=== PATIENT | female | born 1945 | race Caucasian/White ===

== ENCOUNTER → 2017-05-25 | Outpatient (CLI) | payer MEDICARE ==
[~2017-05-25] MED LIST: ALPR0.5T3 PO; BACT800T5 PO; BISO10TA5 PO; NIFE60TA58 PO; SACC1CAP3 PO
[2017-05-25 15:02] LABS: HEMATOCRIT 37.7 % (35.0-46.0); HEMOGLOBIN 12.8 GM/DL (11.6-15.3); MEAN CELL VOLUME 87.8 FL (80.0-100.0); MEAN CORPUSCULAR HEMOGLOBIN 29.9 PG (27.0-34.0); MEAN CORPUSCULAR HGB CONC 34.1 % (32.0-36.0); PLATELET COUNT 536 TH/MM3 (150-450); RED BLOOD COUNT 4.29 MIL/MM3 (4.00-5.30); RED CELL DISTRIBUTION WIDTH 12.9 % (11.6-17.2); WHITE BLOOD COUNT 15.6 TH/MM3 (4.0-11.0)
[2017-05-25 15:21] LABS: BICARBONATE 26.4 MEQ/L (21.0-32.0); CALCIUM 8.8 MG/DL (8.5-10.1); CREATININE 0.73 MG/DL (0.50-1.00)
[2017-05-25 15:41] LABS: INTERNATIONAL NORMALIZED RATIO 1.1 RATIO; PROTHROMBIN TIME - PATIENT 11.1 SEC (9.8-11.6)
[2017-05-25 16:08] LABS: BILIRUBIN, URINE NEG (NEG); BLOOD, URINE TRACE (NEG); GLUCOSE,URINE NEG (NEG); HYALINE CAST, URINE 2 /lpf (RARE); KETONE, URINE NEG (NEG); MUCUS URINE FEW /lpf (OCC); NITRITE,URINE NEG (NEG); PH, URINE 6.5 (5.0-8.5); SQUAMOUS EPITHELIAL CELL URINE 2 /hpf (0-5); URINE COLOR YELLOW (YELLW/STRAW); URINE LEUKOCYTE ESTERASE LARGE (NEG); WHITE BLOOD CELL CLUMPS MOD
== END ==
LOC: CPRE 14:20
PROVIDERS: ATTEND Surgery
DX: Z01.812 Encounter for preprocedural laboratory examination (principal); I73.9 Peripheral vascular disease, unspecified; I10 Essential (primary) hypertension
CPT/HCPCS: 36415; 80048; 81001; 85027; 85610; 87086

== ENCOUNTER 2017-06-01 06:14 | Inpatient (IN) | payer MEDICARE ==
[~2017-06-01] VITALS: Ht 157.5 cm; Wt 56.0 kg
[~2017-06-01 06:14] MED LIST changes: -SACC1CAP3 PO
[2017-06-01] MEDS ORDERED: BUPIVACAINE HCL PF 0.5% 30 ML VIAL ONE (06:43)
[2017-06-01] MEDS ORDERED: PROTAMINE SULFATE 50 MG/5 ML VIAL ONE (06:43)
[2017-06-01] MEDS ORDERED: HEPARIN SODIUM - IV 10,000 UNITS/10 ML VIAL ONE ×2 (06:43→10:59)
[2017-06-01] MEDS ORDERED: THROMBIN (TOPICAL) 20,000 UNIT SPRAY KIT ONE (06:44)
[2017-06-01] MEDS ORDERED: ceFAZolin 2 GM PREMIX 50 ML ONE (06:44)
[2017-06-01] MEDS ORDERED: ceFAZolin INJ 1,000 MG VIAL ONE (06:44)
[2017-06-01] MEDS ORDERED: HEPARIN-NS/PF INJ 500 ML ONE (06:44)
[2017-06-01] MEDS ORDERED: CHLORHEXIDINE GLUCONATE 2 % 1 PACK (2 CLOTHS) TOPICAL PRN (06:45)
[2017-06-01] MEDS ORDERED: LACTATED RINGER'S 1000 ML IV PRN (06:45)
[2017-06-01] MEDS ORDERED: SODIUM CHLORID 0.9% 500 ML IV PRN (06:45)
[2017-06-01] MEDS ORDERED: POVIDONE IODINE 5% (ANTISEPSIS KIT) 4 APPLICATIONS EACH NARE PRN (06:45)
[2017-06-01] MEDS ORDERED: METOPROLOL TARTRATE 25 MG TAB PO PRN (06:45)
[2017-06-01] MEDS ORDERED: SACC1CAP3 PO (06:58)
[2017-06-01] MEDS ORDERED: FAMOTIDINE 20 MG/2 ML VIAL ONE (07:16)
--- NOTE | 2017-06-01 07:21 | PD.VS.PN ---
Pre-operative Note Pre-operative diagnosis: PAD, R LE tissue loss, infrarenal aortic occlusion Planned procedure: ax-fem, fem-fem Interval History: Pt has been feeling well except for continued R leg pain. No F/C or other change in health that would preclude OR. Labs: Hct 38 cr 0.7 INR 1.1 plt 536 Blood: T&S Imaging: CT ([facility]) reviewed Orders: NPO Ancef 2g IV OCTOR Post-operative destination: CVICU Operative site marked: Yes Consent: Informed consent has been obtained from Genoveva Shah. I have explained the procedure in detail and discussed the risks, benefits, and potential complications. All questions have been answered. Patient contact information: Jens [phone] Angelo Barreto MD Jun 01, 2017 07:21
[2017-06-01] MEDS ORDERED: RESP: ALBUTEROL 2.5 MG/IPRATROPIUM 0.5 MG NEB (PRN) ONE (07:29)
[2017-06-01] MEDS ORDERED: RESP: ALBUTEROL 2.5 MG/IPRATROPIUM 0.5 MG NEB (SCH) NEB ONE ×2 (08:00→13:00)
[2017-06-01] MEDS ORDERED: FAMOTIDINE 20 MG/2 ML VIAL IV PUSH ONE (08:00)
[2017-06-01] MEDS ORDERED: ACETAMINOPHEN 1000 MG/100 ML 100 ML IV ONE (11:42)
[2017-06-01] MEDS ORDERED: LIDOCAINE HCL 1% PF 5 ML SYRINGE OTHER ONE (12:00)
[2017-06-01] MEDS ORDERED: NORMOSOL R INJ 2,000 ML IV ONE (12:00)
[2017-06-01] MEDS ORDERED: SODIUM CHLOR 0.9% 250 ML INJ 250 ML IV ONE (12:00)
[2017-06-01] MEDS ORDERED: PHENYLEPH/NS 1000 MCG/10 ML SYR IV ONE (12:00)
[2017-06-01] MEDS ORDERED: PHENYLEPHRINE HCL 10 MG/ML VIAL IV ONE (12:00)
[2017-06-01] MEDS ORDERED: DEXAMETHASONE SOD PHOS 4 MG/ML VIAL IV ONE (12:00)
[2017-06-01] MEDS ORDERED: SODIUM CHLORID 0.9% 500 ML INJ 500 ML IV ONE (12:00)
[2017-06-01] MEDS ORDERED: PROPOFOL 200 MG/20 ML AMP IV ONE (12:00)
[2017-06-01] MEDS ORDERED: ROCURONIUM INJ 50 MG/5 ML SYRINGE IV PUSH ONE (12:00)
[2017-06-01] MEDS ORDERED: ePHEDrine/NS 25 MG/5 ML SYRINGE IV ONE (12:00)
[2017-06-01] MEDS ORDERED: ONDANSETRON HCL 4 MG/2 ML VIAL IV ONE (12:00)
--- NOTE | 2017-06-01 12:11 | HHI.PR ---
cc: Angelo Barreto MD; Noemi Blake MD Immediate Post Op Note Procedure Date: Jun 01, 2017 Pre Op Diagnosis: Aortic occlusion, PAD, R LE wounds Post Op Diagnosis: Aortic occlusion, PAD, R LE wounds Surgeon: Angelo Barreto Filter Tender(s): Bonifacio Loja Procedure: 1. R ax-fem with 8mm PTFE 2. R to L fem-fem with 8mm PTFE 3. R TELECOMMUNICATIONS FIELD TECHNICIAN/PFA TEA with patch angioplasty 4. R TELECOMMUNICATIONS FIELD TECHNICIAN to SFA bypass with 6mm Dacron 5. L TELECOMMUNICATIONS FIELD TECHNICIAN and SFA TEA with patch angioplasty Findings: severe occlusive disease much improved Doppler signals B LE after reperfusion Complications: none Specimen(s) removed: none for pathology Estimated blood loss: 200mL Anesthesia: General Drains: None Fluids: 3800mL IVF Urinary Output (mLs): 370 Patient to: CVICU Patient Condition: Good Implant/Devices: SEE IMPLANT LOG (if applicable) Date/Time of Procedure: SEE SURGICAL CARE RECORD Angelo Barreto MD Jun 01, 2017 12:11
[2017-06-01] MEDS ORDERED: SENNOSIDES 8.6 MG TAB PO PRN (12:15)
[2017-06-01] MEDS ORDERED: HYDROmorphone HCL 2 MG TAB PO PRN (12:15)
[2017-06-01] MEDS ORDERED: MAGNESIUM HYDROXIDE SUSP 30 ML CUP PO PRN (12:15)
[2017-06-01] MEDS ORDERED: BISACODYL 10 MG SUPP RECTAL PRN (12:15)
[2017-06-01] MEDS: MORPHINE SULFATE 4 MG/ML INJ IV PUSH PRN (13:46)
--- NOTE | 2017-06-01 14:50 | RADRPT ---
EXAM DATE/TIME: 06/01/2017 14:35 [place] COMPARISON: No previous studies available for comparison. INDICATIONS : Respiratory Disease. Post Femoral bypass. MEDICAL HISTORY : None. SURGICAL HISTORY : None. ENCOUNTER: Initial ACUITY: 1 day PAIN SCORE: 0/10 LOCATION: Bilateral chest FINDINGS: A single view of the chest demonstrates the lungs to be symmetrically aerated without evidence of mas s, infiltrate or effusion. The cardiomediastinal contours are unremarkable. Osseous structures are intact. CONCLUSION: No acute disease. Wai Urbina MD on June 01, 2017 at 14:48 Board Certified Radiologist. This report was verified electronically.
[2017-06-01 15:00] VITALS: BP 101/57; PULSE 72; PULSE 78; RESP 16; TEMP 97.1; O2SAT 97
[2017-06-01 15:39] LABS: HEMATOCRIT 26.7 % (35.0-46.0); HEMOGLOBIN 8.9 GM/DL (11.6-15.3); MEAN CELL VOLUME 87.7 FL (80.0-100.0); MEAN CORPUSCULAR HEMOGLOBIN 29.3 PG (27.0-34.0); MEAN CORPUSCULAR HGB CONC 33.5 % (32.0-36.0); MEAN PLATELET VOLUME 7.8 FL (7.0-11.0); PLATELET COUNT 455 TH/MM3 (150-450); RED BLOOD COUNT 3.04 MIL/MM3 (4.00-5.30); RED CELL DISTRIBUTION WIDTH 13.2 % (11.6-17.2); WHITE BLOOD COUNT 29.4 TH/MM3 (4.0-11.0)
[2017-06-01 16:00] LABS: INTERNATIONAL NORMALIZED RATIO 1.2 RATIO; PROTHROMBIN TIME - PATIENT 12.4 SEC (9.8-11.6)
--- NOTE | 2017-06-01 16:06 | PD.CONS ---
[facility] Service Critical Care Medicine Consult Requested By Dr. Barreto Reason for Consult s/p right Ax-fem, fem-fem bypass for severe PAD Hypotension Sepsis Right lower extremity wounds with surrounding cellulitis Severe protein energy malnutrition Leucocytosis Severe PAD COPD Primary Care Physician Jenny Hess, DO History of Present Illness Patient is a 72-year-old female with past medical history of severe PAD, COPD, chronic right lower extremity wounds, recent UTI completed Bactrim, hypertension who was admitted to Dr. Barreto service for severe occlusive disease , infrarenal aortic occlusion with chronic right lower extremity wounds. Patient underwent axillofemoral and femorofemoral bypass today by Dr. Barreto. Postop patient was admitted to the CVICU where I evaluated her. Review of OR records indicate EBL: 200mL. Received 3800mL crystalloids, urine output was 370 mL. On my evaluation patient was drowsy from residual anesthesia. Patient remained hypotensive despite 1 L fluid bolus. Started on Levophed to maintain map above 65. Stat CBC 29.4, and patient has evidence of cellulitis surrounding the right lower extremity wound. Recently had been treated with Bactrim for UTI per patient. I will start patient on Unasyn 1.5 g IV every 6 hours. Send urine culture and blood culture. Protein corrected calcium is low which will be replaced. Lactic acid is normal, albumin level is 1.6 indicating severe protein energy malnutrition Review of Systems ROS Limitations: Other Past Family Social History Allergies: Coded Allergies: collagenase Clostridium histolyticu (Verified Allergy, Severe, REDNESS, ) barley (Verified Allergy, Unknown, 06/01/17) garlic (Verified Allergy, Unknown, 06/01/17) gluten (Verified Allergy, Unknown, 06/01/17) wheat (Verified Allergy, Unknown, 06/01/17) Past Medical History Hypertension Peripheral arterial disease COPD Chronic right lower extremity wounds History recurrent UTI Past Surgical History Unable to obtain due to residual sedation Reported Medications Bisoprolol Nifedipine ER Xanax PRN Probiotic Active Ordered Medications Reviewed Family History Unable to obtain due to residual sedation Social History Apparently smokes half a pack of cigarettes daily Drinks 1 drink a night, but quit 3 months ago Physical Exam Vital Signs Vital Signs Date Time Temp Pulse Resp B/P (MAP) Pulse Ox O2 Delivery O2 Flow Rate FiO2 06/01/17 14:55 16 06/01/17 07:00 97.4 86 24 144/67 (92 98 Physical Exam GENERAL: Undernourished thin female patient who is lying on bed, underlying residual sedation from anesthesia SKIN: Warm/dry. Dressing applied right ankle and dorsal foot wound. Provena wound vac to bilateral groin. Right upper chest incision C/D/I HEAD: Normocephalic. EYES: No scleral icterus. No injection or drainage. NECK: Supple, trachea midline. No JVD or lymphadenopathy. CARDIOVASCULAR: Regular rate and rhythm without murmurs, gallops, or rubs. Hypotensive RESPIRATORY: Breath sounds clear and equal bilaterally. No accessory muscle use. GASTROINTESTINAL: Abdomen soft, non-tender, nondistended. MUSCULOSKELETAL: See skin exam above. Bilateral pulses dopplerable. Right leg was multiple wounds on posterior vincent and dorsum of foot, surrounding cellulitis NEURO: Remains sedated from residual anesthesia, no focal deficits Laboratory Laboratory Tests Test 06/01/17 14:35 06/01/17 15:10 White Blood Count 29.4 Red Blood Count 3.04 Hemoglobin 8.9 Hematocrit 26.7 Mean Corpuscular Volume 87.7 Mean Corpuscular Hemoglobin 29.3 Mean Corpuscular Hemoglobin Concent 33.5 Red Cell Distribution Width 13.2 Platelet Count 455 Mean Platelet Volume 7.8 Prothrombin Time 12.4 Prothromb Time International Ratio 1.2 Lactic Acid Level 0.8 Blood Gas Puncture Site ART LINE Blood Gas Patient Temperature 98.6 Blood Gas HCO3 20 Blood Gas Base Excess -5.0 Blood Gas Oxygen Saturation 96 Arterial Blood pH 7.30 Arterial Blood Partial Pressure CO2 43 Arterial Blood Partial Pressure O2 148 Arterial Blood Oxygen Content 12.5 Arterial Blood Carboxyhemoglobin 1.3 Arterial Blood Methemoglobin 1.1 Blood Gas Hemoglobin 9.0 Oxygen Delivery Device SIMPLE MASK Blood Gas Liter Flow 6 Result Diagram: 06/01/17 1435 Imaging CXR no acute findings Septic Shock Reassessment Septic shock perfusion: reassessment completed Assessment and Plan Assessment and Plan ASSESSMENT: s/p ax-fem, fem-fem bypass for severe PAD Hypotension Sepsis Right lower extremity wounds with surrounding cellulitis Severe protein energy malnutrition Leucocytosis Severe PAD COPD PLAN: NEURO: -Xanax as needed for anxiety -Per vascular surgery patient is on morphine/Dilaudid/oxycodone as needed for pain RESP: -Nasal cannula oxygen -DuoNeb every 6 hours scheduled and as needed CV: -IV fluid normal saline bolus 2 total 2 L and continue maintenance fluid -Levophed at 4 mcg/min to maintain map above 65 -Gradually wean Levophed -Bilateral dorsalis pedis pulses are felt by Doppler -Post op management by Dr. Barreto GI: -Heart healthy diet of cleared by Dr. Barreto : -Monitor renal function closely. Akhtar catheter for strict intake output ID: -Send blood culture, urine culture -Start Unasyn 1.5 g IV every 6 hours HEME: -Monitor CBC, CMP, coags ENDO: -Electrolyte replacement per protocol PROPH: -Chemical DVT prophylaxis when cleared by Dr. Barreto. LINES: -Utilize peripheral IVs, central line if needed CC time 35 min Code Status Full Discussed Condition With Bedside RN Alexa Martinez MD Jun 01, 2017 16:06
[2017-06-01 16:20] LABS: ALBUMIN 1.6 GM/DL (3.4-5.0); ALKALINE PHOSPHATASE 77 U/L (45-117); ALT (GPT) 30 U/L (10-53); AST (GOT) 21 U/L (15-37); BICARBONATE 23.8 MEQ/L (21.0-32.0); BLOOD UREA NITROGEN 9 MG/DL (7-18); CALCIUM 6.3 MG/DL (8.5-10.1); CHLORIDE 101 MEQ/L (98-107); CREATININE 0.36 MG/DL (0.50-1.00); GLOMERULAR FILTRATION RATE 178 ML/MIN (>89); GLUCOSE,RANDOM 138 MG/DL (74-106); MAGNESIUM 1.5 MG/DL (1.5-2.5); PHOSPHORUS 2.5 MG/DL (2.5-4.9); SODIUM (NA) 133 MEQ/L (136-145); TOTAL BILIRUBIN ADULT 0.2 MG/DL (0.2-1.0); TOTAL PROTEIN 5.4 GM/DL (6.4-8.2); TROPONIN I LESS THAN 0.02 NG/ML (0.02-0.05)
[2017-06-01 16:25] LABS: CALCIUM-PROTEIN CORRECTED 7.1 MG/DL (8.5-10.1)
--- NOTE | 2017-06-01 16:33 | MP ---
cc: Angelo Barreto MD DATE OF OPERATION: PREOPERATIVE DIAGNOSIS: Abdominal aortic occlusion, peripheral arterial occlusive disease, right lower extremity wound. POSTOPERATIVE DIAGNOSIS: Abdominal aortic occlusion, peripheral arterial occlusive disease, right lower extremity wound. PROCEDURE: 1. Right axillary to femoral artery bypass. 2. Femoral-femoral bypass. 3. Right common femoral and profunda femoris endarterectomy with patch angioplasty. 4. Right common femoral to superficial femoral artery bypass. 5. Left common femoral and superficial femoral artery endarterectomy and patch angioplasty. ATTENDING SURGEON: Angelo Barreto MD ANESTHESIA: General. INDICATIONS: Ms. Shah is a 72-year-old lady with infrarenal aortic occlusion. She has a right lower extremity wound that is nonhealing and nonpalpable pedal pulses. She was taken to the operating room for a definitive inflow procedure. Because of her comorbidities, a direct in-line aortic reconstruction was not an option and intraoperatively, her significant calcific disease of her groins necessitated bilateral groin arterial reconstruction. DESCRIPTION OF PROCEDURE: Informed consent was obtained from the patient. She was taken to the operating room and placed supine on the operating table. An appropriate timeout was taken to ensure the patient's identity, operative site and planned procedure. Two grams of Ancef was initiated prior to skin incision with a redose 4 hours later. Everyone in the room agreed with timeout and we proceeded. Her chest, abdomen, pelvis and legs to her knees were prepped and draped and an incision was made in both patient's groins and carried down through subcutaneous tissue with electrocautery. The common femoral and external iliac arteries, superficial femoral and profunda femoral arteries were all dissected free on the right-hand side. The superficial femoral artery was extremely calcified proximally, and we dissected down further to several centimeters below this to the SFA. On the left-hand side, there was a lateral profunda branch, and this was dissected free. An incision was made below the patient's right clavicle, carried down through subcutaneous tissue with electrocautery. The pectoralis minor muscle was kept lateral and the subclavian vein was identified, dissected free and retracted with a vessel loop, thereby exposing the subclavian and axillary arteries. A tunnel was then created between the axilla and groin incision and between the groin incisions in a subfascial plane. The patient was then systemically heparinized and throughout the remainder of the case, the ACT was kept greater than 250. Proximal and distal control of the axillary artery was obtained with profunda clamps and a longitudinal arteriotomy was made with an 11 blade, extended with Isaiah scissors. An 8 mm ringed PTFE was brought up on the field, tunneled in the previously created tunnel, taking caution not to twist it. It was spatulated proximally and sewn end-to-side to the axillary artery with running 5-0 Prolene suture. At the completion, it was flushed and noted to be hemostatic. A Mitch Softjaw was placed in the graft and the clamps were released. Hemostasis was achieved in the axilla. Proximal control of the external iliac artery on the right was obtained and distal control of the superficial femoral artery and profunda femoral arteries was obtained. Proximal superficial femoral artery was resected and the profunda was endarterectomized along with the common femoral artery. A 1 x 6 bovine pericardial patch was brought up on the field and sewn on as a patch extending from the common femoral artery down to the profunda femoris with running 5-0 Prolene suture. A longitudinal fasciotomy was made with an 11 blade, extended with Isaiah scissors and the 8 mm ringed PTFE was cut to appropriate length and spatulated and sewn onto the middle of the patch with running 5-0 [place]-Mateus suture. At completion, it was flushed and noted to be hemostatic, and there was a nice palpable pulse in the profunda. The clamps were then reapplied and the distal aspect of the ax-fem was incised with 11 blade, extended with [place] scissors. A 6 mm Dacron was brought up the field, spatulated and sewn end-to-side to the distal end of the ax-fem with running 5-0 Prolene sutures. At the completion, it was flushed and noted to be hemostatic, and then the distal aspect of the 6 mm Dacron was sewn to an endarterectomized superficial femoral artery with running 5-0 Prolene suture. At the completion, it was flushed and noted to be hemostatic. There was a nice pulse in both the profunda and the SFA on the right. The clamps were then reapplied and an incision was made on the medial aspect of the ax-fem and the second piece of 8 mm Dacron was sewn end-to-side to the ax-fem with running 5-0 Prolene suture. At the completion, it was flushed and noted to be hemostatic. A clamp was then placed on the crossover fem-fem and it was passed through the tunnel created in a subfascial plane. Proximal and distal control of the left external iliac artery, profunda and superficial femoral artery were all obtained with profunda clamps and a longitudinal arteriotomy was made with an 11 blade, extended with Isaiah scissors. The common femoral and superficial femoral artery were endarterectomized without difficulty. Brisk backbleeding was encountered from the profunda femoris. There was no orificial stenosis. Once the arteries were endarterectomized, a 0.8 x 8 patch was brought up on the field and sewn onto as a patch using running 5-0 Prolene suture. The middle of the patch was then incised with an 11 blade, extended with Isaiah scissors. The crossover fem-fem was cut to appropriate length, spatulated and sewn end-to-side to the middle of the patch with running 5-0 Prolene suture. At the completion, it was flushed and noted to be hemostatic. The clamps were all released. There were nice Doppler signals in the feet and palpable pulses in the groin. The wounds were all irrigated, infiltrated with Marcaine and closed with 2-0 Polysorb, 3-0 Polysorb and 4-0 Monocryl. The sponge and needle counts were correct at the end of the case. I was present and scrubbed and performed the entire procedure. MD RICHARD Morrell/ALIVIA , 03:41 PM , 04:32 PM
[2017-06-01 16:35] VITALS: O2SAT 99
[2017-06-01] MEDS: THIAMINE HCL 100 MG TAB PO SCH (17:17)
[2017-06-01] MEDS ORDERED: CALCIUM CHLORIDE INJ 2 GM in SODIUM CHLORIDE 0.9% INJ 100 ML IV ONE (18:00)
[2017-06-01] MEDS: AMPICILLIN-SULBACTAM INJ 1,500 MG in SODIUM CHLORIDE 0.9% INJ 100 ML IV SCH (18:33)
[2017-06-01 19:00] VITALS: BP_SYST 114; BP_SYST 117; BP_DIAS 47; BP_DIAS 54; PULSE 76; RESP 20; TEMP 97.6; O2SAT 98
[2017-06-01] MEDS ORDERED: NOREPINEPHRINE 4 MG/D5W 250 ML IV PRN (20:15)
[2017-06-01] MEDS ORDERED: SODIUM CHLOR 0.9% 1000 ML INJ 1,000 ML IV ONE (20:30)
[2017-06-01] MEDS: ATORVASTATIN 40 MG TAB PO SCH (21:00)
[2017-06-01] MEDS: DOCUSATE SODIUM 50 MG/SENNA 8.6 MG TAB PO SCH (21:00)
[2017-06-01] MEDS: FAMOTIDINE 20 MG TAB PO SCH (21:00)
[2017-06-01] MEDS: LACTOBACILLUS ACIDOPHILUS TAB PO SCH (21:00)
[2017-06-01] MEDS ORDERED: BISOPROLOL FUMARATE 5 MG TAB PO SCH (21:00)
[2017-06-01 22:17] LABS: TROPONIN I LESS THAN 0.02 NG/ML (0.02-0.05)
[2017-06-01 22:21] LABS: BACTERIA, URINE RARE /hpf; BILIRUBIN, URINE NEG (NEG); BLOOD, URINE NEG (NEG); GLUCOSE,URINE NEG (NEG); KETONE, URINE NEG (NEG); MUCUS URINE FEW /lpf (OCC); NITRITE,URINE NEG (NEG); PH, URINE 6.5 (5.0-8.5); URINE COLOR LIGHT-YELLOW (YELLW/STRAW); URINE LEUKOCYTE ESTERASE TRACE (NEG)
[2017-06-01 23:00] VITALS: BP 126/74; PULSE 76; PULSE 77; RESP 18; TEMP 97.9; O2SAT 95
[2017-06-02] VITALS (8 sets, daily range): BP systolic 101–115; BP diastolic 52–57; PULSE 80–129; RESP 14–18; TEMP 97.6–99.1; O2SAT 92–97
[2017-06-02] MEDS: AMPICILLIN-SULBACTAM INJ 1,500 MG in SODIUM CHLORIDE 0.9% INJ 100 ML IV SCH ×4 (01:06→18:00)
[2017-06-02 05:12] LABS: HEMATOCRIT 28.6 % (35.0-46.0); HEMOGLOBIN 9.6 GM/DL (11.6-15.3); MEAN CELL VOLUME 88.4 FL (80.0-100.0); MEAN CORPUSCULAR HEMOGLOBIN 29.7 PG (27.0-34.0); MEAN CORPUSCULAR HGB CONC 33.6 % (32.0-36.0); MEAN PLATELET VOLUME 7.9 FL (7.0-11.0); PLATELET COUNT 472 TH/MM3 (150-450); RED BLOOD COUNT 3.23 MIL/MM3 (4.00-5.30); RED CELL DISTRIBUTION WIDTH 13.1 % (11.6-17.2); WHITE BLOOD COUNT 23.2 TH/MM3 (4.0-11.0)
[2017-06-02 05:37] LABS: BICARBONATE 26.1 MEQ/L (21.0-32.0); BLOOD UREA NITROGEN 10 MG/DL (7-18); CALCIUM 8.1 MG/DL (8.5-10.1); CHLORIDE 103 MEQ/L (98-107); CREATININE 0.58 MG/DL (0.50-1.00); GLOMERULAR FILTRATION RATE 103 ML/MIN (>89); GLUCOSE,RANDOM 156 MG/DL (74-106); SODIUM (NA) 136 MEQ/L (136-145)
[2017-06-02 05:43] LABS: TROPONIN I LESS THAN 0.02 NG/ML (0.02-0.05)
[2017-06-02] MEDS: ALPRAZolam 0.5 MG TAB PO PRN ×3 (06:03→23:13)
--- NOTE | 2017-06-02 07:38 | PD.VS.PN ---
Subjective POD #: 1 Procedure(s): R ax-fem-fem and B groin reconstructions Subjective/Hospital Course req low dose pressors immediately postoperatively, weaned pain controlled feels good moving legs well Objective Vitals/I&O Date Time Temp Pulse Resp B/P (MAP) Pulse Ox O2 Delivery O2 Flow Rate FiO2 06/02/17 03:00 97.6 84 16 109/54 (72) 95 06/02/17 03:00 90 06/01/17 23:00 97.9 77 18 126/74 (91) 95 06/01/17 23:00 76 06/01/17 19:00 97.6 76 20 114/54 (74) 98 117/47 (70) 06/01/17 19:00 76 06/01/17 16:35 99 Simple Mask 6.00 06/01/17 15:00 78 06/01/17 15:00 97.1 72 16 101/57 (72) 97 06/01/17 14:55 16 06/02/17 06/02/17 06/02/17 07:00 15:00 23:00 Intake Total 1300 ml Output Total 975 ml Balance 325 ml Exam: resting comfortably Strong pedal Doppler signals Laboratory Laboratory Tests Test 06/01/17 14:35 06/01/17 15:10 06/01/17 20:25 06/01/17 20:49 White Blood Count 29.4 Red Blood Count 3.04 Hemoglobin 8.9 Hematocrit 26.7 Mean Corpuscular Volume 87.7 Mean Corpuscular Hemoglobin 29.3 Mean Corpuscular Hemoglobin Concent 33.5 Red Cell Distribution Width 13.2 Platelet Count 455 Mean Platelet Volume 7.8 Prothrombin Time 12.4 Prothromb Time International Ratio 1.2 Blood Urea Nitrogen 9 Creatinine 0.36 Random Glucose 138 Total Protein 5.4 Albumin 1.6 Calcium Level 6.3 Phosphorus Level 2.5 Magnesium Level 1.5 Alkaline Phosphatase 77 Aspartate Amino Transf (AST/SGOT) 21 Alanine Aminotransferase (ALT/SGPT) 30 Total Bilirubin 0.2 Sodium Level 133 Potassium Level 4.0 Chloride Level 101 Carbon Dioxide Level 23.8 Anion Gap 8 Estimat Glomerular Filtration Rate 178 Lactic Acid Level 0.8 Protein Corrected Calcium 7.1 Total Creatine Kinase 88 187 Troponin I LESS THAN 0.02 LESS THAN 0.02 Blood Gas Puncture Site ART LINE Blood Gas Patient Temperature 98.6 Blood Gas HCO3 20 Blood Gas Base Excess -5.0 Blood Gas Oxygen Saturation 96 Arterial Blood pH 7.30 Arterial Blood Partial Pressure CO2 43 Arterial Blood Partial Pressure O2 148 Arterial Blood Oxygen Content 12.5 Arterial Blood Carboxyhemoglobin 1.3 Arterial Blood Methemoglobin 1.1 Blood Gas Hemoglobin 9.0 Oxygen Delivery Device SIMPLE MASK Blood Gas Liter Flow 6 Urine Color LIGHT-YELLOW Urine Turbidity CLEAR Urine pH 6.5 Urine Specific Tyner 1.018 Urine Protein NEG Urine Glucose (UA) NEG Urine Ketones NEG Urine Occult Blood NEG Urine Nitrite NEG Urine Bilirubin NEG Urine Urobilinogen LESS THAN 2.0 Urine Leukocyte Esterase TRACE Urine RBC 2 Urine WBC 11 Urine Bacteria RARE Urine Mucus FEW Microscopic Urinalysis Comment CATH-CULTURE IND Creatine Kinase MB 5.4 Test 06/02/17 03:36 White Blood Count 23.2 Red Blood Count 3.23 Hemoglobin 9.6 Hematocrit 28.6 Mean Corpuscular Volume 88.4 Mean Corpuscular Hemoglobin 29.7 Mean Corpuscular Hemoglobin Concent 33.6 Red Cell Distribution Width 13.1 Platelet Count 472 Mean Platelet Volume 7.9 Blood Urea Nitrogen 10 Creatinine 0.58 Random Glucose 156 Calcium Level 8.1 Sodium Level 136 Potassium Level 4.1 Chloride Level 103 Carbon Dioxide Level 26.1 Anion Gap 7 Estimat Glomerular Filtration Rate 103 Total Creatine Kinase 341 Creatine Kinase MB 7.8 Creatine Kinase MB % 2.3 Troponin I LESS THAN 0.02 Date/Time Source Procedure Growth Status 06/01/17 18:13 Blood Peripheral Aerobic Blood Culture Pending Received 06/01/17 18:13 Blood Peripheral Anaerobic Blood Culture Pending Received 06/01/17 20:25 Urine Catheterized Urine Urine Culture Pending Received Assessment and Plan Plan POD#1 s/p extra-anatomic bypass and B groin reconstruction 1. D/C A-line 2. D/C Akhtar 3. Transfer to CPCU 4. Normalize 5. OOB/PT Discharge Planning 3-4 days, likely to rehab Angelo Barreto MD Jun 02, 2017 07:38
--- NOTE | 2017-06-02 07:57 | HHI.CCPN ---
Subjective Remarks/Hospital Course Patient is a 72-year-old female with past medical history of severe PAD, COPD, chronic right lower extremity wounds, recent UTI completed Bactrim, hypertension who was admitted to Dr. Barreto service for severe occlusive disease , infrarenal aortic occlusion with chronic right lower extremity wounds. Patient underwent axillofemoral and femorofemoral bypass today by Dr. Barreto. Postop patient was admitted to the CVICU where I evaluated her. Review of OR records indicate EBL: 200mL. Received 3800mL crystalloids, urine output was 370 mL. On my evaluation patient was drowsy from residual anesthesia. Patient remained hypotensive despite 1 L fluid bolus. Started on Levophed to maintain map above 65. Stat CBC 29.4, and patient has evidence of cellulitis surrounding the right lower extremity wound. Recently had been treated with Bactrim for UTI per patient. I will start patient on Unasyn 1.5 g IV every 6 hours. Send urine culture and blood culture. Protein corrected calcium is low which will be replaced. Lactic acid is normal, albumin level is 1.6 indicating severe protein energy malnutrition 06/02: Levophed had been weaned off overnight, map consistently about 70. Urine output excellent 950 mL over the last 12 hours. Overall feels better. WBC trending down, 23.2 today. UA shows evidence of UTI Objective Vital Signs Date Time Temp Pulse Resp B/P (MAP) Pulse Ox O2 Delivery O2 Flow Rate FiO2 06/02/17 03:00 97.6 84 16 109/54 (72) 95 06/01/17 16:35 Simple Mask 6.00 Intake and Output 06/02/17 06/02/17 06/03/17 08:00 16:00 00:00 Intake Total 1300 ml Output Total 975 ml Balance 325 ml Result Diagram: 06/02/17 0336 06/02/17 0336 Other Results Laboratory Tests Test 06/01/17 15:10 Blood Gas Puncture Site ART LINE Blood Gas Patient Temperature 98.6 Blood Gas HCO3 20 mmol/L (22-26) Blood Gas Base Excess -5.0 mmol/L (-2-2) Blood Gas Oxygen Saturation 96 % (90-100) Arterial Blood pH 7.30 (7.380-7.420) Arterial Blood Partial Pressure CO2 43 mmHg (38-42) Arterial Blood Partial Pressure O2 148 mmHg (61-120) Arterial Blood Oxygen Content 12.5 Vol % (12.0-20.0) Arterial Blood Carboxyhemoglobin 1.3 % (0-4) Arterial Blood Methemoglobin 1.1 % (0-2) Blood Gas Hemoglobin 9.0 G/DL (12.0-16.0) Oxygen Delivery Device SIMPLE MASK Blood Gas Liter Flow 6 L/M Imaging CXR no acute findings Objective Remarks GENERAL: Undernourished thin female patient who is lying on bed, alert awake SKIN: Warm/dry. Provena wound vac to bilateral groin. Right upper chest incision C/D/I HEAD: Normocephalic. EYES: No scleral icterus. No injection or drainage. NECK: Supple, trachea midline. No JVD or lymphadenopathy. CARDIOVASCULAR: Regular rate and rhythm without murmurs, gallops, or rubs. Hypotensive RESPIRATORY: Breath sounds clear and equal bilaterally. Bilateral expiratory wheezing GASTROINTESTINAL: Abdomen soft, non-tender, nondistended. MUSCULOSKELETAL: See skin exam above. Bilateral pulses dopplerable. Right leg was multiple wounds on posterior vincent and dorsum of foot, surrounding cellulitis NEURO: Remains sedated from residual anesthesia, no focal deficits A/P Assessment and Plan ASSESSMENT: s/p right ax-fem, fem-fem bypass for infrarenal aortic occlusion, severe PAD Hypotension Sepsis UTI Right lower extremity wounds with surrounding cellulitis Severe protein energy malnutrition Leucocytosis Severe PAD COPD PLAN: NEURO: -Xanax as needed for anxiety -Per vascular surgery patient is on morphine/Dilaudid/oxycodone as needed for pain RESP: -Nasal cannula oxygen -DuoNeb every 6 hours scheduled and as needed CV: -IV fluid normal saline bolus 2 total 2 L and continue maintenance fluid at 40 ml per hour -Levophed weaned off. -Bilateral dorsalis pedis pulses are felt by Doppler -Post op management by Dr. Barreto -Continue ASA GI: -Heart healthy diet of cleared by Dr. Barreto : -Monitor renal function closely. Akhtar catheter for strict intake output ID: -F/u blood culture, urine culture -Unasyn 1.5 g IV every 6 hours HEME: -Monitor CBC, CMP, coags ENDO: -Electrolyte replacement per protocol PROPH: -Chemical DVT prophylaxis with Lovenox LINES: -Utilize peripheral IVs, central line if needed Level 2 Transfer to CPCU if ok with Alexa Nunez MD Jun 02, 2017 07:57
[2017-06-02] MEDS ORDERED: NIFEdipine 60 MG SUSTAINED RELEASE TAB PO SCH (09:00)
[2017-06-02] MEDS: FAMOTIDINE 20 MG TAB PO SCH ×2 (09:00→20:34)
[2017-06-02] MEDS: LACTOBACILLUS ACIDOPHILUS TAB PO SCH ×2 (09:00→20:34)
[2017-06-02] MEDS: RESP: ALBUTEROL 2.5 MG/IPRATROPIUM 0.5 MG NEB (SCH) NEB ×3 (09:49→21:27)
[2017-06-02] MEDS: THIAMINE HCL 100 MG TAB PO SCH (10:25)
[2017-06-02] MEDS: ASPIRIN EC 81 MG TABEC PO SCH (10:25)
[2017-06-02] MEDS: DOCUSATE SODIUM 50 MG/SENNA 8.6 MG TAB PO SCH ×2 (10:25→20:34)
[2017-06-02] MEDS: ENOXAPARIN SODIUM 30 MG/0.3 ML SYRINGE SQ SCH (13:21)
--- NOTE | 2017-06-02 17:06 | PD.WCN.NOT ---
Wound Consult Description: Wound consult ordered by for wound management. Communicated with: Mckenna WINCHESTER, Vasquez IBARRA Recommendation: 1. Cleanse Right lower extremity arterial ulcers with normal saline pat dry. 2. Apply Maxorb ll cut to fit wound base cover with dry dressing secure with rolled gauze /tape. 3. Change dressing every 3 days or as needed for dislodgement.Sign and date. 4. Consult podiatry for further orders. Additional Information: Patient was seen today by proposal manager writer and Mckenna WINCHESTER on 4th floor CVICU for wound management.Patient alert and oriented x3 sitting up in chair upon writers arrival.Complains of burning pain in Right lower extremity rated 4/10 (0-10) pain scale.Palpable bilateral pedal pulse.Dressing removed from Right lower extremity with some discomfort noted.Right lower extremity present with 3 arterial ulcers visible in gaiter area dorsal foot.Right Dorsal ulcer measures 2.2cm x1.8cm x slough wound edges are well defined intact and irregular in shape.Erythema noted ~1.0cm circumferentially to wound base.Wound base is 100% loosely adhered moist yellow slough.Scant serosanguineous drainage with no odor present.Right lateral Ulcer measures 3.5cm 3.0cm x slough Wound edges are well defined sloped and irregular in shape .Wound base is 100% loosely adhered moist yellow slough scant serosanguineous drainage without odor.General erythema noted to gaiter area.Right posterior ulcer measure 3.0cm x 2.5cm x slough wound edges are well defined even with wound base irregular in shape.Wound base is 100 % loosely adhered yellow slough.All wound cleansed with normal saline pat dry skin prep applied to periwounds.Patient states she is allergic to Santyl no reaction just states she was using it too long.Patient is currently going to [facility] wound center.Refused any dry dressing be placed on wound.States she will remove them immediately.Petroleum gauze cut to fit applied to wound bases and covered with ABD secured with rolled gauze sign and dated.Consult requested for podiatry for possible debridement.Patient unable to tolerated any mechanical debridement at bedside. Asiya Cadena [facility] Jun 02, 2017 17:06
[2017-06-02] MEDS: MORPHINE SULFATE 4 MG/ML INJ IV PUSH PRN (18:44)
[2017-06-02] MEDS: ATORVASTATIN 40 MG TAB PO SCH (20:34)
[2017-06-03] VITALS (20 sets, daily range): BP systolic 114–132; BP diastolic 52–69; PULSE 96–131; RESP 14–18; TEMP 97.6–98.1; O2SAT 92–100
[2017-06-03] MEDS ORDERED: SODIUM CHLOR 0.9% 1000 ML INJ 1,000 ML IV ONE (00:45)
[2017-06-03] MEDS: RESP: ALBUTEROL 2.5 MG/IPRATROPIUM 0.5 MG NEB (SCH) NEB ×4 (04:01→21:37)
[2017-06-03 04:22] LABS: HEMOGLOBIN 8.9 GM/DL (11.6-15.3); MEAN CELL VOLUME 90.3 FL (80.0-100.0); MEAN CORPUSCULAR HEMOGLOBIN 29.9 PG (27.0-34.0); MEAN CORPUSCULAR HGB CONC 33.1 % (32.0-36.0); MEAN PLATELET VOLUME 7.4 FL (7.0-11.0); PLATELET COUNT 340 TH/MM3 (150-450); RED BLOOD COUNT 2.99 MIL/MM3 (4.00-5.30); WHITE BLOOD COUNT 17.4 TH/MM3 (4.0-11.0)
[2017-06-03 04:27] LABS: BICARBONATE 25.2 MEQ/L (21.0-32.0); CALCIUM 7.7 MG/DL (8.5-10.1); CREATININE 0.51 MG/DL (0.50-1.00)
[2017-06-03] MEDS: ALPRAZolam 0.5 MG TAB PO PRN ×3 (05:15→21:52)
[2017-06-03] MEDS: AMPICILLIN-SULBACTAM INJ 1,500 MG in SODIUM CHLORIDE 0.9% INJ 100 ML IV SCH ×5 (06:00→18:31)
[2017-06-03] MEDS: FAMOTIDINE 20 MG TAB PO SCH ×2 (09:01→21:49)
[2017-06-03] MEDS: LACTOBACILLUS ACIDOPHILUS TAB PO SCH ×2 (09:02→21:50)
[2017-06-03] MEDS: THIAMINE HCL 100 MG TAB PO SCH (09:02)
[2017-06-03] MEDS: DOCUSATE SODIUM 50 MG/SENNA 8.6 MG TAB PO SCH ×2 (09:02→21:49)
[2017-06-03] MEDS: ASPIRIN EC 81 MG TABEC PO SCH (09:02)
--- NOTE | 2017-06-03 09:19 | PD.VS.PN ---
Subjective POD #: 2 Procedure(s): R ax-fem-fem and B groin reconstructions Subjective/Hospital Course Low UOP last night, Akhtar reinserted Pt verónica po Feet ok pain controlled Objective Vitals/I&O Date Time Temp Pulse Resp B/P (MAP) Pulse Ox O2 Delivery O2 Flow Rate FiO2 06/03/17 04:01 98 Nasal Cannula 6.00 06/03/17 03:00 102 06/03/17 03:00 97.7 102 18 114/52 (72) 97 06/02/17 23:00 97.7 102 18 114/52 (72) 97 06/02/17 23:00 129 06/02/17 21:34 18 06/02/17 21:27 97 Nasal Cannula 2.00 06/02/17 19:00 97.6 96 18 114/54 (74) 93 06/02/17 19:00 96 06/02/17 18:49 18 06/02/17 15:00 99.1 99 16 108/57 (74) 95 06/02/17 15:00 102 06/02/17 11:00 92 06/02/17 11:00 98.8 101 16 115/57 (76) 96 Arterial Line 06/02/17 09:49 95 Nasal Cannula 3.00 06/03/17 06/03/17 06/03/17 07:00 15:00 23:00 Intake Total 1340 ml Output Total 525 ml Balance 815 ml Exam: incisions soft, no hematoma strong B LE Doppler signals Laboratory Laboratory Tests Test 06/03/17 03:45 White Blood Count 17.4 Red Blood Count 2.99 Hemoglobin 8.9 Hematocrit 27.0 Mean Corpuscular Volume 90.3 Mean Corpuscular Hemoglobin 29.9 Mean Corpuscular Hemoglobin Concent 33.1 Red Cell Distribution Width 13.0 Platelet Count 340 Mean Platelet Volume 7.4 Blood Urea Nitrogen 9 Creatinine 0.51 Random Glucose 99 Calcium Level 7.7 Sodium Level 135 Potassium Level 4.3 Chloride Level 102 Carbon Dioxide Level 25.2 Anion Gap 8 Estimat Glomerular Filtration Rate 119 Date/Time Source Procedure Growth Status 06/01/17 18:13 Blood Peripheral Aerobic Blood Culture - Preliminary NO GROWTH IN 1 DAY Resulted 06/01/17 18:13 Blood Peripheral Anaerobic Blood Culture - Preliminary NO GROWTH IN 1 DAY Resulted 06/01/17 20:25 Urine Catheterized Urine Urine Culture - Preliminary No growth. Resulted Assessment and Plan Plan POD#2 s/p extra-anatomic bypass and B groin reconstruction 1. Reg diet 2. Increase Beta Raji 3. watch UOP closely 4. Likely remove Akhtar tomorrow 5. OOB/PT and d/c planning 6. Wound care to R LE Discharge Planning Sat/Sun to rehab case management consulted DOS Angelo Barreto MD Jun 03, 2017 09:19
--- NOTE | 2017-06-03 12:18 | HHI.CCPN ---
Subjective Remarks/Hospital Course Patient is a 72-year-old female with past medical history of severe PAD, COPD, chronic right lower extremity wounds, recent UTI completed Bactrim, hypertension who was admitted to Dr. Barreto service for severe occlusive disease , infrarenal aortic occlusion with chronic right lower extremity wounds. Patient underwent axillofemoral and femorofemoral bypass today by Dr. Barreto. Postop patient was admitted to the CVICU where I evaluated her. Review of OR records indicate EBL: 200mL. Received 3800mL crystalloids, urine output was 370 mL. On my evaluation patient was drowsy from residual anesthesia. Patient remained hypotensive despite 1 L fluid bolus. Started on Levophed to maintain map above 65. Stat CBC 29.4, and patient has evidence of cellulitis surrounding the right lower extremity wound. Recently had been treated with Bactrim for UTI per patient. I will start patient on Unasyn 1.5 g IV every 6 hours. Send urine culture and blood culture. Protein corrected calcium is low which will be replaced. Lactic acid is normal, albumin level is 1.6 indicating severe protein energy malnutrition 06/02: Levophed had been weaned off overnight, map consistently about 70. Urine output excellent 950 mL over the last 12 hours. Overall feels better. WBC trending down, 23.2 today. UA shows evidence of UTI 06/03: UO diminished overnight since afternoon bili 25 mL/h. Since 7 AM 8 have been improved 50 mL/h approximately. Not requiring maintenance fluid. WBC count is trending down. Tachycardic after breathing treatment. Increase activity Objective Vital Signs Date Time Temp Pulse Resp B/P (MAP) Pulse Ox O2 Delivery O2 Flow Rate FiO2 06/03/17 09:44 92 Nasal Cannula 6.00 06/03/17 07:00 112 06/03/17 07:00 97.6 16 121/60 (80) Intake and Output 06/03/17 06/03/17 06/03/17 07:59 15:59 23:59 Intake Total 1340 ml Output Total 525 ml Balance 815 ml Result Diagram: 06/03/17 0345 06/03/17 0345 Other Results Microbiology Date/Time Source Procedure Growth Status 06/01/17 20:25 Urine Catheterized Urine Urine Culture - Final NO GROWTH IN 48 HOURS. Complete Imaging CXR no acute findings Objective Remarks GENERAL: Undernourished thin female patient who is lying on bed, alert awake SKIN: Warm/dry. Provena wound vac to bilateral groin. Right upper chest incision C/D/I HEAD: Normocephalic. EYES: No scleral icterus. No injection or drainage. NECK: Supple, trachea midline. No JVD or lymphadenopathy. CARDIOVASCULAR: Tachycardic rate and rhythm without murmurs, gallops, or rubs. Hypotensive RESPIRATORY: Breath sounds clear and equal bilaterally. Bilateral expiratory wheezing GASTROINTESTINAL: Abdomen soft, non-tender, nondistended. MUSCULOSKELETAL: See skin exam above. Bilateral pulses Dopplerable. Right leg was multiple wounds on posterior vincent and dorsum of foot, surrounding cellulitis NEURO: Alert awake oriented, No focal deficits. A/P Assessment and Plan ASSESSMENT: s/p right ax-fem, fem-fem bypass for infrarenal aortic occlusion, severe PAD Sepsis UTI Oliguria Right lower extremity wounds with surrounding cellulitis Severe protein energy malnutrition Leucocytosis Severe PAD COPD PLAN: NEURO: -Xanax as needed for anxiety -Per vascular surgery patient is on morphine/Dilaudid/oxycodone as needed for pain RESP: -Nasal cannula oxygen -DuoNeb every 6 hours scheduled and as needed CV: -Not requiring maintenance fluid -Levophed weaned off>24 hours -Bilateral dorsalis pedis pulses are felt by Doppler -Post op management by Dr. Barreto -Continue ASA GI: -Heart healthy diet of cleared by Dr. Barreto : -Monitor renal function closely. Akhtar catheter for strict intake output -Oliguria resolved no evidence of acute kidney injury ID: -F/u blood culture, urine culture -Unasyn 1.5 g IV every 6 hours for 7 days, or change to Augmentin on DC HEME: -Monitor CBC, CMP, coags ENDO: -Electrolyte replacement per protocol PROPH: -Chemical DVT prophylaxis with Lovenox LINES: -Utilize peripheral IVs, central line if needed Level 2 Transfer to CPCU when cleared with Alexa Nunez MD Jun 03, 2017 12:18
[2017-06-03] MEDS: METOPROLOL TARTRATE 25 MG TAB PO SCH ×2 (13:19→21:49)
[2017-06-03] MEDS: ENOXAPARIN SODIUM 30 MG/0.3 ML SYRINGE SQ SCH (13:20)
[2017-06-03] MEDS ORDERED: METOPROLOL TARTRATE 25 MG TAB PO SCH (21:00)
[2017-06-03] MEDS: ATORVASTATIN 40 MG TAB PO SCH (21:49)
--- NOTE | 2017-06-03 22:07 | PD.CONS ---
History of Present Illness Service Podiatry Consult Requested By Estevan Reason for Consult Chronic painful ulcers right leg Primary Care Physician Jenny Hess DO Diagnoses: History of Present Illness Patient relates 10 month history of nonhealing wounds that began as pain, then erupted into areas of painful open wounds on right calf. She has no history of trauma to the skin or any reason that she can think of that this would occur. She has been to wound care [facility] with Dr Mckeon and has had unsuccessful wound healing, undergoing many painful debridements in the clinic and is very frustrated. Past Family Social History Allergies: Coded Allergies: collagenase Clostridium histolyticu (Verified Allergy, Severe, REDNESS, ) barley (Verified Allergy, Unknown, 06/01/17) garlic (Verified Allergy, Unknown, 06/01/17) gluten (Verified Allergy, Unknown, 06/01/17) wheat (Verified Allergy, Unknown, 06/01/17) Past Medical History Severe PAD COPD chronic right lower extremity wounds recent UTI hypertension Past Surgical History axillofemoral and femorofemoral bypass Active Ordered Medications Current Medications Medications (Trade) Dose Ordered Sig/Hector Route Start Time Stop Time Status Last Admin (Pepcid) 20 mg BID PO 06/01/17 21:00 06/04/17 09:02 (Roxicodone) 5 mg Q4H PRN PO 06/01/17 12:15 06/02/17 20:34 (Dilaudid) 2 mg Q4H PRN PO 06/01/17 12:15 (Morphine Inj) 2 mg Q1H PRN IV PUSH 06/01/17 12:15 06/02/17 18:44 (Lovenox Inj) 30 mg Q24H SQ 06/02/17 12:00 06/04/17 12:41 (Mercy-Colace) 1 tab BID PO 06/01/17 21:00 06/04/17 09:01 (Milk Of Magnesia Liq) 30 ml Q12H PRN PO 06/01/17 12:15 (Senokot) 17.2 mg Q12H PRN PO 06/01/17 12:15 (Dulcolax Supp) 10 mg DAILY PRN RECTAL 06/01/17 12:15 (Lactulose Liq) 30 ml DAILY PRN PO 06/01/17 12:15 (Xanax) 0.5 mg Q6H PRN PO 06/01/17 12:15 06/03/17 21:52 (Procardia Xl) 60 mg DAILY PO 06/02/17 09:00 Future Hold (Zebeta) 10 mg BID PO 06/01/17 21:00 Future Hold (Lactinex) 1 tab BID PO 06/01/17 21:00 06/04/17 09:01 (Ecotrin Ec) 81 mg DAILY PO 06/02/17 09:00 06/04/17 09:50 (Lipitor) 40 mg HS PO 06/01/17 21:00 06/03/17 21:49 (Vitamin B1) 100 mg DAILY PO 06/01/17 16:15 06/04/17 09:02 Ampicillin Sodium/ Sulbactam Sodium 1500 mg/Sodium Chloride 100 ml @ 200 mls/hr Q6H IV 06/01/17 18:00 06/04/17 17:14 Norepinephrine Bitartrate 250 ml @ 7.5 mls/hr TITRATE PRN IV 06/01/17 20:15 (Duoneb Neb) 1 ampule Q6HR NEB NEB 06/02/17 10:00 06/04/17 09:58 (Lopressor) 25 mg Q8HR PO 06/03/17 14:00 06/04/17 14:00 Physical Exam Vital Signs Vital Signs Date Time Temp Pulse Resp B/P (MAP) Pulse Ox O2 Delivery O2 Flow Rate FiO2 06/03/17 21:37 96 Nasal Cannula 4.00 06/03/17 18:00 106 06/03/17 17:00 111 06/03/17 16:00 124 06/03/17 15:59 96 Nasal Cannula 4.00 06/03/17 15:00 97.9 116 14 132/69 (90) 95 06/03/17 15:00 116 06/03/17 14:00 112 06/03/17 13:00 131 06/03/17 12:00 115 06/03/17 11:00 124 06/03/17 11:00 97.8 115 16 124/60 (81) 100 06/03/17 10:00 101 06/03/17 09:44 92 Nasal Cannula 6.00 06/03/17 09:00 96 06/03/17 08:00 112 06/03/17 07:00 112 06/03/17 07:00 97.6 112 16 121/60 (80) 98 06/03/17 04:01 98 Nasal Cannula 6.00 06/03/17 03:00 102 06/03/17 03:00 97.7 102 18 114/52 (72) 97 06/02/17 23:00 97.7 102 18 114/52 (72) 97 06/02/17 23:00 129 Physical Exam GENERAL: This is a well-nourished, well-developed patient, in no apparent distress. SKIN: No rashes, ecchymoses or lesions. Cool and dry. HEAD: Atraumatic. Normocephalic. No temporal or scalp tenderness. EYES: Pupils equal round and reactive. Extraocular motions intact. No scleral icterus. No injection or drainage. ENT: Nose without bleeding, purulent drainage or septal hematoma. Throat without erythema, tonsillar hypertrophy or exudate. Uvula midline. Airway patent. NECK: Trachea midline. No JVD or lymphadenopathy. Supple, nontender, no meningeal signs. CARDIOVASCULAR: Regular rate and rhythm without murmurs, gallops, or rubs. RESPIRATORY: Clear to auscultation. Breath sounds equal bilaterally. No wheezes , rales, or rhonchi. GASTROINTESTINAL: Abdomen soft, non-tender, nondistended. No hepato-splenomegaly , or palpable masses. No guarding. MUSCULOSKELETAL: Extremities without clubbing, cyanosis, or edema. No joint tenderness, effusion, or edema noted. No calf tenderness. Negative Homans sign bilaterally. NEUROLOGICAL: Awake and alert. Cranial nerves II through XII intact. Motor and sensory grossly within normal limits. Five out of 5 muscle strength in all muscle groups. Normal speech. Laboratory Laboratory Tests Test 06/03/17 03:45 White Blood Count 17.4 Red Blood Count 2.99 Hemoglobin 8.9 Hematocrit 27.0 Mean Corpuscular Volume 90.3 Mean Corpuscular Hemoglobin 29.9 Mean Corpuscular Hemoglobin Concent 33.1 Red Cell Distribution Width 13.0 Platelet Count 340 Mean Platelet Volume 7.4 Blood Urea Nitrogen 9 Creatinine 0.51 Random Glucose 99 Calcium Level 7.7 Sodium Level 135 Potassium Level 4.3 Chloride Level 102 Carbon Dioxide Level 25.2 Anion Gap 8 Estimat Glomerular Filtration Rate 119 Date/Time Source Procedure Growth Status 06/01/17 18:13 Blood Peripheral Aerobic Blood Culture - Preliminary NO GROWTH IN 2 DAYS Resulted 06/01/17 18:13 Blood Peripheral Anaerobic Blood Culture - Preliminary NO GROWTH IN 2 DAYS Resulted 06/01/17 20:25 Urine Catheterized Urine Urine Culture - Final NO GROWTH IN 48 HOURS. Complete Result Diagram: 06/03/17 0345 06/03/17 0345 Assessment and Plan Assessment and Plan Ulcers right lower leg, chronic To OR for biopsy of lesion right leg with possible debridement. Will attempt to obtain information from [facility] wound care tomorrow for further information NPO after breakfast tomorrow Daniel Reddy DPM Jun 03, 2017 22:07
[2017-06-04] VITALS (19 sets, daily range): BP systolic 128–155; BP diastolic 60–80; PULSE 80–102; RESP 16–20; TEMP 96.8–98.7; O2SAT 89–99
[2017-06-04] MEDS: AMPICILLIN-SULBACTAM INJ 1,500 MG in SODIUM CHLORIDE 0.9% INJ 100 ML IV SCH ×5 (01:14→23:34)
[2017-06-04] MEDS: RESP: ALBUTEROL 2.5 MG/IPRATROPIUM 0.5 MG NEB (SCH) NEB ×4 (03:38→22:00)
[2017-06-04 04:46] LABS: AUTOMATED NEUTROPHIL # 14.3 TH/MM3 (1.8-7.7); BASOPHIL # 0.1 TH/MM3 (0-0.2); BASOPHIL % 0.6 % (0.0-2.0); EOSINOPHIL # 0.2 TH/MM3 (0-0.4); EOSINOPHIL % 0.9 % (0.0-4.0); HEMATOCRIT 30.8 % (35.0-46.0); HEMOGLOBIN 10.4 GM/DL (11.6-15.3); LYMPH % 9.2 % (9.0-44.0); LYMPHOCYTE # 1.6 TH/MM3 (1.0-4.8); MEAN CELL VOLUME 87.4 FL (80.0-100.0); MEAN CORPUSCULAR HEMOGLOBIN 29.4 PG (27.0-34.0); MEAN CORPUSCULAR HGB CONC 33.6 % (32.0-36.0); MEAN PLATELET VOLUME 7.4 FL (7.0-11.0); MONO % 7.2 % (0.0-8.0); MONOCYTE # 1.3 TH/MM3 (0-0.9); NEUT % 82.1 % (16.0-70.0); PLATELET COUNT 410 TH/MM3 (150-450); RED BLOOD COUNT 3.52 MIL/MM3 (4.00-5.30); RED CELL DISTRIBUTION WIDTH 13.2 % (11.6-17.2); WHITE BLOOD COUNT 17.4 TH/MM3 (4.0-11.0)
--- NOTE | 2017-06-04 05:07 | RADRPT ---
EXAM DATE/TIME: 06/04/2017 04:20 [place] COMPARISON: CHEST SINGLE AP, June 01, 2017, 14:35. INDICATIONS : Respiratory disease. MEDICAL HISTORY : None. SURGICAL HISTORY : None. ENCOUNTER: Subsequent ACUITY: 1 day PAIN SCORE: Non-responsive. LOCATION: Bilateral chest FINDINGS: A single portable frontal view of the chest shows a new small area of linear consolidation within the left base. The lungs are hyperinflated bilaterally. No effusions. Heart normal in size. CONCLUSION: New left lower lobe infiltrate. Dani Kim Jr., MD on June 04, 2017 at 5:05 Board Certified Radiologist. This report was verified electronically.
[2017-06-04 05:13] LABS: ALBUMIN 1.8 GM/DL (3.4-5.0); ALKALINE PHOSPHATASE 80 U/L (45-117); ALT (GPT) 38 U/L (10-53); AST (GOT) 48 U/L (15-37); BICARBONATE 28.3 MEQ/L (21.0-32.0); BLOOD UREA NITROGEN 8 MG/DL (7-18); CHLORIDE 95 MEQ/L (98-107); CREATININE 0.45 MG/DL (0.50-1.00); GLOMERULAR FILTRATION RATE 138 ML/MIN (>89); GLUCOSE,RANDOM 95 MG/DL (74-106); MAGNESIUM 1.5 MG/DL (1.5-2.5); PHOSPHORUS 2.9 MG/DL (2.5-4.9); SODIUM (NA) 133 MEQ/L (136-145); TOTAL BILIRUBIN ADULT 0.3 MG/DL (0.2-1.0); TOTAL PROTEIN 6.4 GM/DL (6.4-8.2)
[2017-06-04] MEDS: METOPROLOL TARTRATE 25 MG TAB PO SCH ×3 (06:16→21:21)
--- NOTE | 2017-06-04 07:05 | HHI.CCPN ---
Subjective Remarks/Hospital Course Patient is a 72-year-old female with past medical history of severe PAD, COPD, chronic right lower extremity wounds, recent UTI completed Bactrim, hypertension who was admitted to Dr. Barreto service for severe occlusive disease , infrarenal aortic occlusion with chronic right lower extremity wounds. Patient underwent axillofemoral and femorofemoral bypass today by Dr. Barreto. Postop patient was admitted to the CVICU where I evaluated her. Review of OR records indicate EBL: 200mL. Received 3800mL crystalloids, urine output was 370 mL. On my evaluation patient was drowsy from residual anesthesia. Patient remained hypotensive despite 1 L fluid bolus. Started on Levophed to maintain map above 65. Stat CBC 29.4, and patient has evidence of cellulitis surrounding the right lower extremity wound. Recently had been treated with Bactrim for UTI per patient. I will start patient on Unasyn 1.5 g IV every 6 hours. Send urine culture and blood culture. Protein corrected calcium is low which will be replaced. Lactic acid is normal, albumin level is 1.6 indicating severe protein energy malnutrition 06/02: Levophed had been weaned off overnight, map consistently about 70. Urine output excellent 950 mL over the last 12 hours. Overall feels better. WBC trending down, 23.2 today. UA shows evidence of UTI 06/03: UO diminished overnight since afternoon bili 25 mL/h. Since 7 AM 8 have been improved 50 mL/h approximately. Not requiring maintenance fluid. WBC count is trending down. Tachycardic after breathing treatment. Increase activity 06/04: No acute events overnight last 24 hours urine output approximately 2 L. Chest x-ray shows small left-sided infiltrates which could be atelectasis. Start EzCPAP Acapella. Podiatry planning on surgical debridement of the right lower extremity wounds Objective Vital Signs Date Time Temp Pulse Resp B/P (MAP) Pulse Ox O2 Delivery O2 Flow Rate FiO2 06/04/17 04:00 96.8 96 20 141/69 (93) 89 06/03/17 21:37 Nasal Cannula 4.00 Intake and Output 06/04/17 06/04/17 06/05/17 08:00 16:00 00:00 Intake Total 720 ml Output Total 900 ml Balance -180 ml Result Diagram: 06/04/17 0431 06/04/17 0431 Other Results Microbiology Date/Time Source Procedure Growth Status 06/01/17 20:25 Urine Catheterized Urine Urine Culture - Final NO GROWTH IN 48 HOURS. Complete Imaging CXR no acute findings Objective Remarks GENERAL: Undernourished thin female patient who is lying on bed, alert awake SKIN: Warm/dry. Provena wound vac to bilateral groin. Right upper chest incision C/D/I HEAD: Normocephalic. EYES: No scleral icterus. No injection or drainage. NECK: Supple, trachea midline. No JVD or lymphadenopathy. CARDIOVASCULAR: Normal sinus rhythm without murmurs, gallops, or rubs. Hypotensive RESPIRATORY: Breath sounds clear and equal bilaterally. Mild expiratory wheezing GASTROINTESTINAL: Abdomen soft, non-tender, nondistended. MUSCULOSKELETAL: See skin exam above. Bilateral pulses Dopplerable. Right leg was multiple wounds on posterior vincent and dorsum of foot, surrounding cellulitis NEURO: Alert awake oriented, No focal deficits. A/P Assessment and Plan ASSESSMENT: s/p right ax-fem, fem-fem bypass for infrarenal aortic occlusion, severe PAD Possible Sepsis UTI Leukocytosis Left lower lobe infiltrate/atelectasis Right lower extremity wounds with surrounding cellulitis Severe protein energy malnutrition Leucocytosis Severe PAD COPD PLAN: NEURO: -Xanax as needed for anxiety -Per vascular surgery patient is on morphine/Dilaudid/oxycodone as needed for pain RESP: -Nasal cannula oxygen -DuoNeb every 6 hours scheduled and as needed -EzPAP, Acapella CV: -Not requiring maintenance fluid -Levophed weaned off>24 hours -Bilateral dorsalis pedis pulses are felt by Doppler -Post op management by Dr. Barreto -Continue ASA GI: -Heart healthy diet\ : -Monitor renal function closely. Akhtar catheter for strict intake output -Oliguria resolved no evidence of acute kidney injury ID: -F/u blood culture, urine culture -Unasyn 1.5 g IV every 6 hours for 7 days, or change to Augmentin on DC -CXR repeat in am -Podiatry planning on wound debridement possibly today HEME: -Monitor CBC, CMP, coags ENDO: -Electrolyte replacement per protocol PROPH: -Chemical DVT prophylaxis with Lovenox LINES: -Utilize peripheral IVs. Continue Akhtar Level 2 Transfer to CPCU today. [facility] consulted to assume care in am 06/05/17 Alexa Martinez MD Jun 04, 2017 07:05
[2017-06-04] MEDS: DOCUSATE SODIUM 50 MG/SENNA 8.6 MG TAB PO SCH ×2 (09:01→21:21)
[2017-06-04] MEDS: LACTOBACILLUS ACIDOPHILUS TAB PO SCH ×3 (09:01→21:20)
[2017-06-04] MEDS: LACTULOSE SYRUP 20 GM/30 ML CUP PO PRN (09:01)
[2017-06-04] MEDS: FAMOTIDINE 20 MG TAB PO SCH ×2 (09:02→21:21)
[2017-06-04] MEDS: THIAMINE HCL 100 MG TAB PO SCH (09:02)
[2017-06-04] MEDS: ASPIRIN EC 81 MG TABEC PO SCH (09:50)
[2017-06-04] MEDS ORDERED: MAGNESIUM SULFATE 1 GM PREMIX 100 ML IV ONE (10:00)
[2017-06-04] MEDS ORDERED: PHENYLEPH/NS 1000 MCG/10 ML SYR IV ONE (12:00)
[2017-06-04] MEDS ORDERED: ONDANSETRON HCL 4 MG/2 ML VIAL IV ONE (12:00)
[2017-06-04] MEDS ORDERED: LIDOCAINE HCL 1% PF 5 ML SYRINGE OTHER ONE (12:00)
[2017-06-04] MEDS ORDERED: PROPOFOL 200 MG/20 ML AMP IV ONE (12:00)
--- NOTE | 2017-06-04 12:24 | PD.VS.PN ---
Subjective POD #: 3 Procedure(s): R ax-fem-fem and B groin reconstructions Subjective/Hospital Course looks good, transfer from CVICU today Dr. Reddy saw yesterday and reportedly on schedule for today Objective Vitals/I&O Date Time Temp Pulse Resp B/P (MAP) Pulse Ox O2 Delivery O2 Flow Rate FiO2 06/04/17 11:00 101 06/04/17 10:00 94 4.00 06/04/17 08:00 98 06/04/17 08:00 98.4 98 16 155/80 (105) 94 06/04/17 04:00 96.8 96 20 141/69 (93) 89 06/04/17 03:00 91 06/04/17 00:00 97.7 100 20 135/72 (93) 96 06/03/17 23:18 99 06/03/17 21:37 96 Nasal Cannula 4.00 06/03/17 20:00 98.1 104 18 119/67 (84) 94 06/03/17 19:00 108 06/03/17 18:00 106 06/03/17 17:00 111 06/03/17 16:00 124 06/03/17 15:59 96 Nasal Cannula 4.00 06/03/17 15:00 97.9 116 14 132/69 (90) 95 06/03/17 15:00 116 06/03/17 14:00 112 06/03/17 13:00 131 06/04/17 06/04/17 06/04/17 07:00 15:00 23:00 Intake Total 720 ml 100 ml Output Total 900 ml Balance -180 ml 100 ml Exam: R axillary incision ok Prevenas inplace feet warm Laboratory Laboratory Tests Test 06/04/17 04:31 White Blood Count 17.4 Red Blood Count 3.52 Hemoglobin 10.4 Hematocrit 30.8 Mean Corpuscular Volume 87.4 Mean Corpuscular Hemoglobin 29.4 Mean Corpuscular Hemoglobin Concent 33.6 Red Cell Distribution Width 13.2 Platelet Count 410 Mean Platelet Volume 7.4 Neutrophils (%) (Auto) 82.1 Lymphocytes (%) (Auto) 9.2 Monocytes (%) (Auto) 7.2 Eosinophils (%) (Auto) 0.9 Basophils (%) (Auto) 0.6 Neutrophils # (Auto) 14.3 Lymphocytes # (Auto) 1.6 Monocytes # (Auto) 1.3 Eosinophils # (Auto) 0.2 Basophils # (Auto) 0.1 CBC Comment DIFF FINAL Differential Comment Blood Urea Nitrogen 8 Creatinine 0.45 Random Glucose 95 Total Protein 6.4 Albumin 1.8 Calcium Level 8.0 Phosphorus Level 2.9 Magnesium Level 1.5 Alkaline Phosphatase 80 Aspartate Amino Transf (AST/SGOT) 48 Alanine Aminotransferase (ALT/SGPT) 38 Total Bilirubin 0.3 Sodium Level 133 Potassium Level 3.8 Chloride Level 95 Carbon Dioxide Level 28.3 Anion Gap 10 Estimat Glomerular Filtration Rate 138 Date/Time Source Procedure Growth Status 06/01/17 18:13 Blood Peripheral Aerobic Blood Culture - Preliminary NO GROWTH IN 3 DAYS Resulted 06/01/17 18:13 Blood Peripheral Anaerobic Blood Culture - Preliminary NO GROWTH IN 3 DAYS Resulted 06/01/17 20:25 Urine Catheterized Urine Urine Culture - Final NO GROWTH IN 48 HOURS. Complete Assessment and Plan Plan POD#3 s/p extra-anatomic bypass and B groin reconstruction 1. Reg diet 2. D/C Akhtar 3. Transfer to [facility] 4. Appreciate Dr. Reddy assistance Discharge Planning Wednesday case management consulted Angelo Melo MD Jun 04, 2017 12:24
[2017-06-04] MEDS: ENOXAPARIN SODIUM 30 MG/0.3 ML SYRINGE SQ SCH (12:41)
[2017-06-04] MEDS ORDERED: LIDOCAINE HCL 2% PF 10 ML VIAL ONE (19:04)
[2017-06-04] MEDS ORDERED: BACITRACIN TOP OINT 15 GM TUBE ONE (19:04)
[2017-06-04] MEDS ORDERED: BUPIVACAINE/EPINEPHRINE 0.25% 50 ML VIAL ONE (19:36)
[2017-06-04] MEDS ORDERED: MIDAZOLAM HCL 2 MG/2 ML VIAL ONE (20:15)
[2017-06-04] MEDS ORDERED: DO NOT ADM ANY ANTICOAGULANT DRUGS PRN (20:45)
[2017-06-04] MEDS: ATORVASTATIN 40 MG TAB PO SCH (21:21)
--- NOTE | 2017-06-04 21:41 | HHI.PR ---
Immediate Post Op Note Procedure Date: Jun 04, 2017 Pre Op Diagnosis: Chronic ulcers right leg and foot x 4 Post Op Diagnosis: same Surgeon: Daniel Reddy DPM Site Interpreter(s): Staff Procedure: Irrigation and debridement of ulcers right leg and foot with biopsy of lesion Findings: Consistent with diagnosis. Ulcer right lateral calf area 2.8cm x 2.5cm x 0.4cm depth, punched out appearance. Fibrotic base. No surrounding erythema/edema. No purulence. Ulcer right posterior calf area 4cm x 3.5cm x 0.4cm depth, punched out appearance. Fibrotic base. No surrounding erythema/edema. No purulence. Ulcer right medial calf area 2.5cm x 2.5cm x 0.4cm depth, punched out appearance. Fibrotic base. No surrounding erythema/edema. No purulence. Ulcer right dorsolateral forefoot area 1.6cm x 1cm x 0.3cm depth, punched out appearance. Fibrotic base. No surrounding erythema/edema. No purulence. Ulcers excisionally debrided with #15 blade, curette, rongeur down to healthy bleeding subcutaneous tissue of all fibrotic tissue. 3mm punch biopsy performed of lateral and medial ulcerations and sent to pathology for analysis and diagnosis. Irrigation and dressing with xeroform, 4x4, cast padding, farzaneh right lower extremity. No dressing change until Wednesday/Wednesday. Will need twice weekly bandage changes arranged upon discharge per home health and follow up in my clinic as outpatient in 2 weeks. Additional Information: N/a Complications: None Specimen(s) removed: 1. biopsy lesion right medial calf 2. biopsy lesion right lateral calf 3. culture right leg Estimated blood loss: minimal Anesthesia: General, Local (30mL 0.25% marcaine with epinephrine) Drains: None Tourniquet time (min at mmHg) n/a Patient to: PACU Patient Condition: Good Date/Time of Procedure: SEE SURGICAL CARE RECORD Daniel Reddy DPM Jun 04, 2017 21:41
[2017-06-05] VITALS (27 sets, daily range): BP systolic 109–138; BP diastolic 52–89; PULSE 85–114; RESP 16–22; TEMP 97.9–98.7; O2SAT 90–99
[2017-06-05] MEDS: RESP: ALBUTEROL 2.5 MG/IPRATROPIUM 0.5 MG NEB (SCH) NEB ×4 (02:11→21:20)
[2017-06-05] MEDS: ALPRAZolam 0.5 MG TAB PO PRN (03:35)
[2017-06-05] MEDS: METOPROLOL TARTRATE 25 MG TAB PO SCH ×3 (06:57→20:56)
[2017-06-05] MEDS: AMPICILLIN-SULBACTAM INJ 1,500 MG in SODIUM CHLORIDE 0.9% INJ 100 ML IV SCH ×4 (06:58→23:54)
[2017-06-05] MEDS: LACTOBACILLUS ACIDOPHILUS TAB PO SCH ×2 (09:00→20:56)
[2017-06-05] MEDS: ASPIRIN EC 81 MG TABEC PO SCH (10:32)
[2017-06-05] MEDS: THIAMINE HCL 100 MG TAB PO SCH (10:32)
[2017-06-05] MEDS: FAMOTIDINE 20 MG TAB PO SCH ×2 (10:32→20:56)
[2017-06-05] MEDS: DOCUSATE SODIUM 50 MG/SENNA 8.6 MG TAB PO SCH ×2 (10:32→20:56)
--- NOTE | 2017-06-05 12:22 | PD.VS.PN ---
Subjective POD #: 5 Procedure(s): R ax-fem-fem and B groin reconstructions Subjective/Hospital Course looks great sitting in chair verónica leg debridement yesterday feels well Objective Vitals/I&O Date Time Temp Pulse Resp B/P (MAP) Pulse Ox O2 Delivery O2 Flow Rate FiO2 06/05/17 12:00 100 06/05/17 11:00 98.7 92 16 138/67 (90) 90 06/05/17 11:00 93 06/05/17 10:00 102 06/05/17 09:18 97 Nasal Cannula 4.00 06/05/17 09:00 88 06/05/17 08:00 98.6 85 16 131/61 (84) 91 06/05/17 08:00 86 06/05/17 07:00 96 06/05/17 06:28 93 06/05/17 05:20 98 06/05/17 04:04 114 06/05/17 03:58 98 06/05/17 03:20 98.4 93 22 138/73 (94) 99 06/05/17 02:30 100 06/05/17 02:11 93 Nasal Cannula 5.00 06/05/17 01:27 94 06/05/17 00:40 87 06/04/17 23:30 98.5 83 19 131/60 (83) 99 06/04/17 23:00 99 06/04/17 22:00 89 06/04/17 21:37 Nasal Cannula 1.00 06/04/17 21:00 95 06/04/17 21:00 98.1 92 21 145/67 (93) 95 Nasal Cannula 4 06/04/17 21:00 98.7 102 20 128/60 (82) 94 18 20:45 93 25 145/62 (89) 93 Nasal Cannula 4 06/04/17 20:30 100 25 152/71 (98) 89 Nasal Cannula 4 06/04/17 20:15 97 23 136/62 (86) 95 Nasal Cannula 3 06/04/17 20:06 98.3 93 20 116/57 (76) 100 Nasal Cannula 3 06/04/17 19:15 91 25 152/59 (90) 93 06/04/17 18:53 98.6 91 20 162/70 (100) 93 06/04/17 18:00 80 06/04/17 17:19 93 Nasal Cannula 1.00 06/04/17 17:00 87 06/04/17 16:00 96 06/04/17 15:26 98.4 98 16 142/78 (99) 94 06/04/17 15:00 99 06/04/17 14:00 96 06/04/17 13:00 96 06/05/17 06/05/17 06/05/17 07:00 15:00 23:00 Intake Total 480 ml Output Total 400 ml Balance 80 ml Exam: R incision ok Groins with Prevenas in place Laboratory Date/Time Source Procedure Growth Status 06/01/17 18:13 Blood Peripheral Aerobic Blood Culture - Preliminary NO GROWTH IN 4 DAYS Resulted 06/01/17 18:13 Blood Peripheral Anaerobic Blood Culture - Preliminary NO GROWTH IN 4 DAYS Resulted 06/01/17 20:25 Urine Catheterized Urine Urine Culture - Final NO GROWTH IN 48 HOURS. Complete 06/04/17 19:55 Wound Leg Fungal Smear - Final NO FUNGAL ELEMENTS SEEN. Resulted 06/04/17 19:55 Wound Leg Fungal Culture Pending Resulted Assessment and Plan Plan POD#5 s/p extra-anatomic bypass and B groin reconstruction 1. Reg diet 2. wound per [facility] 3. medical mgmt per primary service 4. Prevenas off Wednesday Discharge Planning Wednesday case management consulted Angelo Melo MD Jun 05, 2017 12:22
[2017-06-05] MEDS: ENOXAPARIN SODIUM 30 MG/0.3 ML SYRINGE SQ SCH (13:13)
--- NOTE | 2017-06-05 13:55 | PD.POD ---
Subjective Podiatric Problems s/p debridement of ulcers right leg/foot and biopsy of lesions x [address] Reddy Past Med/Surg/Social History Social History Smoking Status: Current Every Day Smoker Objective Vital Signs Vital Signs Date Time Temp Pulse Resp B/P (MAP) Pulse Ox O2 Delivery O2 Flow Rate FiO2 06/05/17 12:00 100 06/05/17 11:00 98.7 92 16 138/67 (90) 90 06/05/17 11:00 93 06/05/17 10:00 102 06/05/17 09:18 97 Nasal Cannula 4.00 06/05/17 09:00 88 06/05/17 08:00 98.6 85 16 131/61 (84) 91 06/05/17 08:00 86 06/05/17 07:00 96 06/05/17 06:28 93 06/05/17 05:20 98 06/05/17 04:04 114 06/05/17 03:58 98 06/05/17 03:20 98.4 93 22 138/73 (94) 99 06/05/17 02:30 100 06/05/17 02:11 93 Nasal Cannula 5.00 06/05/17 01:27 94 06/05/17 00:40 87 06/04/17 23:30 98.5 83 19 131/60 (83) 99 06/04/17 23:00 99 06/04/17 22:00 89 06/04/17 21:37 Nasal Cannula 1.00 06/04/17 21:00 95 06/04/17 21:00 98.1 92 21 145/67 (93) 95 Nasal Cannula 4 06/04/17 21:00 98.7 102 20 128/60 (82) 94 06/04/17 20:45 93 25 145/62 (89) 93 Nasal Cannula 4 06/04/17 20:30 100 25 152/71 (98) 89 Nasal Cannula 4 06/04/17 20:15 97 23 136/62 (86) 95 Nasal Cannula 3 06/04/17 20:06 98.3 93 20 116/57 (76) 100 Nasal Cannula 3 06/04/17 19:15 91 25 152/59 (90) 93 06/04/17 18:53 98.6 91 20 162/70 (100) 93 06/04/17 18:00 80 4/20/18 17:19 93 Nasal Cannula 1.00 06/04/17 17:00 87 06/04/17 16:00 96 06/04/17 15:26 98.4 98 16 142/78 (99) 94 06/04/17 15:00 99 06/04/17 14:00 96 Coded Allergies: collagenase Clostridium histolyticu (Verified Allergy, Severe, REDNESS, ) barley (Verified Allergy, Unknown, 06/01/17) garlic (Verified Allergy, Unknown, 06/01/17) gluten (Verified Allergy, Unknown, 06/01/17) wheat (Verified Allergy, Unknown, 06/01/17) Medications and IVs Current Medications Medications (Trade) Dose Ordered Sig/Hector Route Start Time Stop Time Status Last Admin (Pepcid) 20 mg BID PO 06/01/17 21:00 06/05/17 10:32 (Roxicodone) 5 mg Q4H PRN PO 06/01/17 12:15 06/02/17 20:34 (Dilaudid) 2 mg Q4H PRN PO 06/01/17 12:15 (Morphine Inj) 2 mg Q1H PRN IV PUSH 06/01/17 12:15 06/02/17 18:44 (Lovenox Inj) 30 mg Q24H SQ 06/02/17 12:00 06/05/17 13:13 (Mercy-Colace) 1 tab BID PO 06/01/17 21:00 06/05/17 10:32 (Milk Of Magnesia Liq) 30 ml Q12H PRN PO 06/01/17 12:15 06/05/17 10:59 (Senokot) 17.2 mg Q12H PRN PO 06/01/17 12:15 (Dulcolax Supp) 10 mg DAILY PRN RECTAL 06/01/17 12:15 (Lactulose Liq) 30 ml DAILY PRN PO 06/01/17 12:15 (Xanax) 0.5 mg Q6H PRN PO 06/01/17 12:15 06/05/17 03:35 (Procardia Xl) 60 mg DAILY PO 06/02/17 09:00 Future Hold (Zebeta) 10 mg BID PO 06/01/17 21:00 Future Hold (Lactinex) 1 tab BID PO 06/01/17 21:00 06/04/17 09:01 (Ecotrin Ec) 81 mg DAILY PO 06/02/17 09:00 06/05/17 10:32 (Lipitor) 40 mg HS PO 06/01/17 21:00 06/04/17 21:21 (Vitamin B1) 100 mg DAILY PO 06/01/17 16:15 06/05/17 10:32 Ampicillin Sodium/ Sulbactam Sodium 1500 mg/Sodium Chloride 100 ml @ 200 mls/hr Q6H IV 06/01/17 18:00 06/05/17 13:14 Norepinephrine Bitartrate 250 ml @ 7.5 mls/hr TITRATE PRN IV 06/01/17 20:15 (Duoneb Neb) 1 ampule Q6HR NEB NEB 06/02/17 10:00 06/05/17 09:18 (Lopressor) 25 mg Q8HR PO 06/03/17 14:00 06/05/17 13:13 Miscellaneous Information ALL NURSING DEPARTME... UNSCH PRN .XX 06/04/17 20:45 06/05/17 20:44 Other Results Microbiology Date/Time Source Procedure Growth Status 06/01/17 18:13 Blood Peripheral Aerobic Blood Culture - Preliminary NO GROWTH IN 4 DAYS Resulted 06/01/17 18:13 Blood Peripheral Anaerobic Blood Culture - Preliminary NO GROWTH IN 4 DAYS Resulted 06/01/17 20:25 Urine Catheterized Urine Urine Culture - Final NO GROWTH IN 48 HOURS. Complete 06/04/17 19:55 Wound Leg Fungal Smear - Final NO FUNGAL ELEMENTS SEEN. Resulted 06/04/17 19:55 Wound Leg Fungal Culture Pending Resulted Skin biopsy x 2 from 06/04/17 pending Exam-Podiatry Remarks Right leg/foot bandage clean, dry, intact. Patient relates much less pain to right leg/foot today. Assessment & Plan A/P Ulcers right leg/foot s/p debridement of ulcers right leg/foot and biopsy of lesions x [address] Reddy Ordered twice weekly bandage changes per nursing while in-house. Awaiting culture and biopsy results. If d/c to rehab, will need to continue. Ok to d/c to rehab before biopsy results are in. Can follow after d/c and address any issues in my clinic. Follow up in my clinic as outpatient in 2 weeks Daniel Reddy DPM Jun 05, 2017 13:55
--- NOTE | 2017-06-05 14:09 | HHI.PR ---
Subjective Remarks No new complaints today. CBC is stable. Work with PT has started. Objective Vital Signs Date Time Temp Pulse Resp B/P (MAP) Pulse Ox O2 Delivery O2 Flow Rate FiO2 06/05/17 13:00 103 06/05/17 12:00 100 06/05/17 11:00 98.7 92 16 138/67 (90) 90 06/05/17 11:00 93 06/05/17 10:00 102 06/05/17 09:18 97 Nasal Cannula 4.00 06/05/17 09:00 88 06/05/17 08:00 98.6 85 16 131/61 (84) 91 06/05/17 08:00 86 06/05/17 07:00 96 06/05/17 06:28 93 06/05/17 05:20 98 06/05/17 04:04 114 06/05/17 03:58 98 06/05/17 03:20 98.4 93 22 138/73 (94) 99 06/05/17 02:30 100 06/05/17 02:11 93 Nasal Cannula 5.00 06/05/17 01:27 94 06/05/17 00:40 87 06/04/17 23:30 98.5 83 19 131/60 (83) 99 06/04/17 23:00 99 06/04/17 22:00 89 06/04/17 21:37 Nasal Cannula 1.00 06/04/17 21:00 95 06/04/17 21:00 98.1 92 21 145/67 (93) 95 Nasal Cannula 4 06/04/17 21:00 98.7 102 20 128/60 (82) 94 06/04/17 20:45 93 25 145/62 (89) 93 Nasal Cannula 4 06/04/17 20:30 100 25 152/71 (98) 89 Nasal Cannula 4 06/04/17 20:15 97 23 136/62 (86) 95 Nasal Cannula 3 06/04/17 20:06 98.3 93 20 116/57 (76) 100 Nasal Cannula 3 06/04/17 19:15 91 25 152/59 (90) 93 06/04/17 18:53 98.6 91 20 162/70 (100) 93 06/04/17 18:00 80 06/04/17 17:19 93 Nasal Cannula 1.00 06/04/17 17:00 87 06/04/17 16:00 96 06/04/17 15:26 98.4 98 16 142/78 (99) 94 06/04/17 15:00 99 I/O 06/04/17 06/04/17 06/04/17 06/05/17 06/05/17 06/05/17 07:00 15:00 23:00 07:00 15:00 23:00 Intake Total 720 ml 100 ml 610 ml 480 ml Output Total 900 ml 930 ml 400 ml Balance -180 ml 100 ml -320 ml 80 ml Intake Oral 720 ml 360 ml 480 ml IV Total 100 ml 250 ml Output Urine Total 900 ml 925 ml 400 ml Estimated Blood Loss 5 ml # Voids 2 # Bowel Movements 0 Result Diagram: 06/04/1743006/04/17430 Objective Remarks GENERAL: NAD, A&Ox3 HEAD: Normocephalic. NECK: Supple, trachea midline. No lymphadenopathy. EYES: No scleral icterus. No injection or drainage. CARDIOVASCULAR: Regular rate and rhythm without murmurs, gallops, or rubs. RESPIRATORY: Breath sounds equal bilaterally. No accessory muscle use. GASTROINTESTINAL: Abdomen soft, non-tender, nondistended. MUSCULOSKELETAL: No cyanosis, or edema. Bandages the right lower extremity SKIN: Warm and dry. NEURO: No focal neurological deficitis. A/P Problem List: (1) PAD (peripheral artery disease) ICD Code: I73.9 - Peripheral vascular disease, unspecified Assessment and Plan 72 year old female status post Right fem-fem bypass secondary to infra-renal aortic occlusion. s/p right ax-fem, fem-fem bypass infrarenal aortic occlusion severe PAD Continue PRN pain treatments Vascular surgeon following Right lower extremity wounds RLE Cellulitis UTI LLL Infiltrate Podiatry following Unasyn 1.5 g IV every 6 hours Follow cultures COPD No exacerbation Follow clinically General Anxiety Disorder PRN Xanax DVT Prophylaxis [place] Leo Lopes MD Jun 05, 2017 14:09
[2017-06-05] MEDS: ATORVASTATIN 40 MG TAB PO SCH (20:56)
[2017-06-06] VITALS (27 sets, daily range): BP systolic 110–148; BP diastolic 58–67; PULSE 71–112; RESP 18–20; TEMP 97.8–98.7; O2SAT 92–99
[2017-06-06] MEDS: RESP: ALBUTEROL 2.5 MG/IPRATROPIUM 0.5 MG NEB (SCH) NEB (02:59)
[2017-06-06 04:40] LABS: AUTOMATED NEUTROPHIL # 15.3 TH/MM3 (1.8-7.7); BASOPHIL # 0.1 TH/MM3 (0-0.2); BASOPHIL % 0.3 % (0.0-2.0); EOSINOPHIL # 0.3 TH/MM3 (0-0.4); EOSINOPHIL % 1.5 % (0.0-4.0); HEMATOCRIT 29.4 % (35.0-46.0); HEMOGLOBIN 9.9 GM/DL (11.6-15.3); LYMPH % 7.3 % (9.0-44.0); LYMPHOCYTE # 1.4 TH/MM3 (1.0-4.8); MEAN CELL VOLUME 89.4 FL (80.0-100.0); MEAN CORPUSCULAR HGB CONC 33.6 % (32.0-36.0); MEAN PLATELET VOLUME 7.3 FL (7.0-11.0); MONOCYTE # 1.7 TH/MM3 (0-0.9); NEUT % 81.9 % (16.0-70.0); PLATELET COUNT 462 TH/MM3 (150-450); RED BLOOD COUNT 3.29 MIL/MM3 (4.00-5.30); RED CELL DISTRIBUTION WIDTH 13.3 % (11.6-17.2); WHITE BLOOD COUNT 18.7 TH/MM3 (4.0-11.0)
[2017-06-06 04:58] LABS: ALBUMIN 1.6 GM/DL (3.4-5.0); ALT (GPT) 32 U/L (10-53); AST (GOT) 32 U/L (15-37); BICARBONATE 28.4 MEQ/L (21.0-32.0); BLOOD UREA NITROGEN 8 MG/DL (7-18); CALCIUM 7.8 MG/DL (8.5-10.1); CHLORIDE 96 MEQ/L (98-107); GLUCOSE,RANDOM 102 MG/DL (74-106); SODIUM (NA) 133 MEQ/L (136-145)
[2017-06-06 05:00] LABS: ALKALINE PHOSPHATASE 80 U/L (45-117); CREATININE 0.53 MG/DL (0.50-1.00); GLOMERULAR FILTRATION RATE 114 ML/MIN (>89); TOTAL BILIRUBIN ADULT 0.4 MG/DL (0.2-1.0); TOTAL PROTEIN 6.4 GM/DL (6.4-8.2)
[2017-06-06] MEDS: METOPROLOL TARTRATE 25 MG TAB PO SCH ×3 (05:47→21:09)
[2017-06-06] MEDS: AMPICILLIN-SULBACTAM INJ 1,500 MG in SODIUM CHLORIDE 0.9% INJ 100 ML IV SCH ×4 (05:47→23:34)
[2017-06-06] MEDS: LACTULOSE SYRUP 20 GM/30 ML CUP PO PRN (05:48)
[2017-06-06] MEDS: LACTOBACILLUS ACIDOPHILUS TAB PO SCH ×4 (08:36→21:08)
[2017-06-06] MEDS: DOCUSATE SODIUM 50 MG/SENNA 8.6 MG TAB PO SCH ×2 (08:36→21:10)
[2017-06-06] MEDS: THIAMINE HCL 100 MG TAB PO SCH (08:37)
[2017-06-06] MEDS: FAMOTIDINE 20 MG TAB PO SCH ×2 (08:37→21:09)
[2017-06-06] MEDS: ASPIRIN EC 81 MG TABEC PO SCH (08:37)
[2017-06-06] MEDS: ENOXAPARIN SODIUM 30 MG/0.3 ML SYRINGE SQ SCH (11:04)
--- NOTE | 2017-06-06 11:07 | HHI.PR ---
Subjective Remarks Leukocytosis worsened today. Patient says she does not feel well today. Bowel movement has not occurred since surgery. Wound culture is negative at 24 hours , should be monitored for 72 hours. Further history is that patient has chronic lower extremity wounds and sometimes oral lesions. She frequently has nocturnal fevers and night sweats. Being on antibiotics in the past has helped her feel better temporarily but when she discontinues antibiotics she has recurrence of her chronic lesions in symptoms. May represent autoimmunity versus an underlying chronic infection such as a tickborne infection. Objective Vital Signs Date Time Temp Pulse Resp B/P (MAP) Pulse Ox O2 Delivery O2 Flow Rate FiO2 06/06/17 10:42 96 Nasal Cannula 2.00 06/06/17 10:00 71 06/06/17 09:00 97 06/06/17 08:00 92 06/06/17 07:15 93 Room Air 06/06/17 07:15 98.0 95 20 148/67 (94) 93 06/06/17 07:15 82 06/06/17 06:11 99 06/06/17 05:00 93 06/06/17 04:39 98.4 96 110/63 (79) 99 06/06/17 04:00 96 06/06/17 03:00 82 06/06/17 02:00 78 06/06/17 01:00 84 06/06/17 00:30 96 Nasal Cannula 2.00 06/06/17 00:28 97.9 100 119/58 (78) 96 06/06/17 00:00 92 06/05/17 23:00 88 06/05/17 22:00 88 06/05/17 21:32 Nasal Cannula 2.00 06/05/17 21:00 106 06/05/17 20:00 102 06/05/17 19:00 98.3 98 109/52 (71) 95 06/05/17 19:00 104 06/05/17 19:00 95 Nasal Cannula 2.00 06/05/17 18:00 101 06/05/17 17:00 87 06/05/17 16:00 88 06/05/17 15:00 97.9 87 16 132/89 (103) 96 06/05/17 15:00 93 06/05/17 14:00 98 06/05/17 13:00 103 06/05/17 12:00 100 I/O 06/05/17 06/05/17 06/05/17 06/06/17 06/06/17 06/06/17 07:00 15:00 23:00 07:00 15:00 23:00 Intake Total 480 ml 100 ml 820 ml 360 ml Output Total 400 ml 950 ml 550 ml Balance 80 ml 100 ml -130 ml -190 ml Intake Oral 480 ml 720 ml 360 ml IV Total 100 ml 100 ml Output Urine Total 400 ml 950 ml 550 ml # Voids 2 3 # Bowel Movements 0 Result Diagram: 06/06/1740906/06/17409 Objective Remarks GENERAL: NAD, A&Ox3 HEAD: Normocephalic. NECK: Supple, trachea midline. No lymphadenopathy. EYES: No scleral icterus. No injection or drainage. CARDIOVASCULAR: Regular rate and rhythm without murmurs, gallops, or rubs. RESPIRATORY: Breath sounds equal bilaterally. No accessory muscle use. GASTROINTESTINAL: Abdomen soft, non-tender, nondistended. MUSCULOSKELETAL: No cyanosis, or edema. Bandages the right lower extremity SKIN: Warm and dry. NEURO: No focal neurological deficitis. A/P Problem List: (1) PAD (peripheral artery disease) ICD Code: I73.9 - Peripheral vascular disease, unspecified Assessment and Plan 72 year old female status post Right fem-fem bypass secondary to infra-renal aortic occlusion. Doxycycline added. Steroids initiated. Further workup of patient's condition. s/p right ax-fem, fem-fem bypass infrarenal aortic occlusion severe PAD Continue PRN pain treatments Vascular surgeon following Right lower extremity wounds RLE Cellulitis UTI LLL Infiltrate Podiatry following Unasyn 1.5 g IV every 6 hours Follow cultures Autoimmune workup Tickborne illness screening Continue to follow wound cultures Follow CBC Doxycycline added Steroids initiated COPD No exacerbation Follow clinically General Anxiety Disorder PRN Xanax DVT Prophylaxis Lovenox Leo Lopes MD Jun 06, 2017 11:07
[2017-06-06] MEDS ORDERED: SIMETHICONE SUSP DROPS 40 MG/0.6 ML 30 ML BTL PO PRN (11:15)
[2017-06-06] MEDS ORDERED: GLYCERIN ADULT 2 GM SUPP RECTAL PRN (11:15)
[2017-06-06] MEDS ORDERED: methylPREDNISolone SOD SUCC 40 MG/1 ML VIAL IV PUSH ONE (11:15)
[2017-06-06] MEDS: DOXYCYCLINE INJ 100 MG in SODIUM CHLORIDE 0.9% INJ 100 ML IV SCH (12:50)
[2017-06-06] MEDS: ATORVASTATIN 40 MG TAB PO SCH ×2 (21:00→21:09)
[2017-06-06] MEDS: methylPREDNISolone SOD SUCC 40 MG/1 ML VIAL IV PUSH SCH (21:09)
[2017-06-07] VITALS (19 sets, daily range): BP systolic 146–172; BP diastolic 70–90; PULSE 82–114; RESP 19–20; TEMP 97.7–98.6; O2SAT 94–97
[2017-06-07] MEDS: DOXYCYCLINE INJ 100 MG in SODIUM CHLORIDE 0.9% INJ 100 ML IV SCH ×2 (00:42→13:38)
[2017-06-07 04:11] LABS: BASOPHIL % 0.1 % (0.0-2.0); HEMATOCRIT 27.2 % (35.0-46.0); HEMOGLOBIN 9.2 GM/DL (11.6-15.3); LYMPH % 3.4 % (9.0-44.0); LYMPHOCYTE # 0.6 TH/MM3 (1.0-4.8); MEAN CELL VOLUME 85.4 FL (80.0-100.0); MEAN CORPUSCULAR HGB CONC 33.9 % (32.0-36.0); MEAN PLATELET VOLUME 7.5 FL (7.0-11.0); MONO % 2.3 % (0.0-8.0); MONOCYTE # 0.4 TH/MM3 (0-0.9); NEUT % 94.2 % (16.0-70.0); PLATELET COUNT 521 TH/MM3 (150-450); RED BLOOD COUNT 3.18 MIL/MM3 (4.00-5.30); RED CELL DISTRIBUTION WIDTH 13.3 % (11.6-17.2); WHITE BLOOD COUNT 18.1 TH/MM3 (4.0-11.0)
[2017-06-07 04:33] LABS: ALBUMIN 1.7 GM/DL (3.4-5.0); ALT (GPT) 38 U/L (10-53); AST (GOT) 34 U/L (15-37); BICARBONATE 28.6 MEQ/L (21.0-32.0); BLOOD UREA NITROGEN 11 MG/DL (7-18); CALCIUM 8.3 MG/DL (8.5-10.1); CHLORIDE 98 MEQ/L (98-107); GLOMERULAR FILTRATION RATE 158 ML/MIN (>89); GLUCOSE,RANDOM 180 MG/DL (74-106); SODIUM (NA) 135 MEQ/L (136-145)
[2017-06-07 04:34] LABS: RHEUMATOID FACTOR SCREEN NEGATIVE (NEGATIVE)
[2017-06-07 04:35] LABS: ALKALINE PHOSPHATASE 90 U/L (45-117); TOTAL BILIRUBIN ADULT 0.3 MG/DL (0.2-1.0); TOTAL PROTEIN 6.7 GM/DL (6.4-8.2)
[2017-06-07] MEDS: METOPROLOL TARTRATE 25 MG TAB PO SCH ×2 (06:20→13:41)
[2017-06-07] MEDS: AMPICILLIN-SULBACTAM INJ 1,500 MG in SODIUM CHLORIDE 0.9% INJ 100 ML IV SCH ×2 (06:20→12:04)
[2017-06-07] MEDS: ALPRAZolam 0.5 MG TAB PO PRN (06:20)
[2017-06-07] MEDS: LACTOBACILLUS ACIDOPHILUS TAB PO SCH ×3 (08:50→13:41)
[2017-06-07] MEDS: ASPIRIN EC 81 MG TABEC PO SCH (08:50)
[2017-06-07] MEDS: THIAMINE HCL 100 MG TAB PO SCH (08:50)
[2017-06-07] MEDS: FAMOTIDINE 20 MG TAB PO SCH (08:50)
[2017-06-07] MEDS: methylPREDNISolone SOD SUCC 40 MG/1 ML VIAL IV PUSH SCH (08:50)
[2017-06-07] MEDS: DOCUSATE SODIUM 50 MG/SENNA 8.6 MG TAB PO SCH (08:51)
--- NOTE | 2017-06-07 09:34 | PD.VS.PN ---
Subjective POD #: 6 Procedure(s): R ax-fem-fem and B groin reconstructions Subjective/Hospital Course 72/ afebrile pt with a PMH of PAD, R LE tissue loss, infrarenal aortic occlusion Pt POD 6 s/p R ax-fem-fem and B groin reconstructions Pt sitting in chair Looks great LE warm with motor intact Prevena wound vacs to B groins intact Post operative dressing to R LE I/C/D Objective Vitals/I&O Date Time Temp Pulse Resp B/P (MAP) Pulse Ox O2 Delivery O2 Flow Rate FiO2 06/07/17 07:00 109 06/07/17 07:00 97.8 101 19 167/90 (115) 97 06/07/17 06:00 114 06/07/17 05:04 108 06/07/17 04:36 98.6 98 172/79 (110) 95 06/07/17 04:00 92 06/07/17 03:00 82 06/07/17 02:00 100 06/07/17 01:00 86 06/07/17 00:37 97.7 100 149/86 (107) 94 06/07/17 00:00 88 06/06/17 23:00 84 06/06/17 22:15 21 06/06/17 22:00 86 06/06/17 21:00 106 06/06/17 20:00 104 06/06/17 19:00 112 06/06/17 19:00 97.8 102 148/66 (93) 92 06/06/17 18:00 108 06/06/17 17:00 107 06/06/17 16:00 96 06/06/17 15:00 81 06/06/17 15:00 98.7 82 20 144/65 (91) 95 06/06/17 15:00 95 Room Air 06/06/17 14:00 90 06/06/17 13:00 103 06/06/17 12:00 88 06/06/17 11:00 94 Room Air 06/06/17 11:00 97.9 98 18 111/59 (76) 94 06/06/17 11:00 96 06/06/17 10:42 96 Nasal Cannula 2.00 06/06/17 10:00 71 06/07/17 06/07/17 06/07/17 07:00 15:00 23:00 Intake Total 680 ml 100 ml Output Total 2950 ml Balance -2270 ml 100 ml Exam: GENERAL: A&OX3,NAD,GCS15 SKIN: LE Warm and dry w/ motor intact Incisions to bilat groins I/C/D w/o drainage/swelling/odor R groin incision with small seroma distal end of the incision line Incision to R chest region I/C/D w/o D/S/O/R CARDIOVASCULAR: +S1,S2 RESPIRATORY: BS CTA/ No accessory muscle use. GASTROINTESTINAL: Abdomen S/NT MUSCULOSKELETAL: No cyanosis, or edema. Palpable L DP Post Operative Dressing to R LE I/C/D R LE warm/ cap refill < 3 sec Laboratory Laboratory Tests Test 06/07/17 03:41 White Blood Count 18.1 Red Blood Count 3.18 Hemoglobin 9.2 Hematocrit 27.2 Mean Corpuscular Volume 85.4 Mean Corpuscular Hemoglobin 29.0 Mean Corpuscular Hemoglobin Concent 33.9 Red Cell Distribution Width 13.3 Platelet Count 521 Mean Platelet Volume 7.5 Neutrophils (%) (Auto) 94.2 Lymphocytes (%) (Auto) 3.4 Monocytes (%) (Auto) 2.3 Eosinophils (%) (Auto) 0.0 Basophils (%) (Auto) 0.1 Neutrophils # (Auto) 17.0 Lymphocytes # (Auto) 0.6 Monocytes # (Auto) 0.4 Eosinophils # (Auto) 0.0 Basophils # (Auto) 0.0 CBC Comment DIFF FINAL Differential Comment Erythrocyte Sedimentation Rate GREATER THAN 140 Blood Urea Nitrogen 11 Creatinine 0.40 Random Glucose 180 Total Protein 6.7 Albumin 1.7 Calcium Level 8.3 Alkaline Phosphatase 90 Aspartate Amino Transf (AST/SGOT) 34 Alanine Aminotransferase (ALT/SGPT) 38 Total Bilirubin 0.3 Sodium Level 135 Potassium Level 4.0 Chloride Level 98 Carbon Dioxide Level 28.6 Anion Gap 8 Estimat Glomerular Filtration Rate 158 C-Reactive Protein 11.10 Rheumatoid Factor Screen NEGATIVE Rheumatoid Factor Titer Date/Time Source Procedure Growth Status 06/01/17 18:13 Blood Peripheral Aerobic Blood Culture - Final NO GROWTH IN 5 DAYS Complete 06/01/17 18:13 Blood Peripheral Anaerobic Blood Culture - Final NO GROWTH IN 5 DAYS Complete 06/01/17 20:25 Urine Catheterized Urine Urine Culture - Final NO GROWTH IN 48 HOURS. Complete 06/04/17 19:55 Wound Leg Fungal Smear - Final NO FUNGAL ELEMENTS SEEN. Resulted 06/04/17 19:55 Wound Leg Fungal Culture Pending Resulted Assessment and Plan Assessment: (1) PAD (peripheral artery disease) (2) infrarenal aortic occlusion Plan POD#6 s/p R ax-fem-fem/B groin reconstruction Pt doing well LE warm with motor intact Palpable distal pulses present Plan Discussed and reviewed post operative care and management w/ pt Removed Bilat Groin Prevena wound vacs Leave B groin incisions open to air Continue wound care per [facility] Pt clear for d/c from a vascular stand point Arranged post op f/u in 3W with a surveillance JASWANT Perri Cruz [facility] [phone] Discharge Planning Pt clear for D/C from a vascular stand point Arranged out pt f/u in 3W Perri Cruz [facility] Jun 07, 2017 09:34
--- NOTE | 2017-06-07 10:28 | HHI.PR ---
Subjective Remarks Follow-up R ax-fem-fem and B groin reconstructions 06/07/17-Patient seen and examined, she denies any significant RLE pain, Chest pain or shortness of breath. Looking forward discharge to [facility] today Objective Vitals Vital Signs Date Time Temp Pulse Resp B/P (MAP) Pulse Ox O2 Delivery O2 Flow Rate FiO2 06/07/17 10:00 88 06/07/17 09:00 85 06/07/17 08:00 94 06/07/17 07:00 109 06/07/17 07:00 97.8 101 19 167/90 (115) 97 06/07/17 06:00 114 06/07/17 05:04 108 06/07/17 04:36 98.6 98 172/79 (110) 95 06/07/17 04:00 92 06/07/17 03:00 82 06/07/17 02:00 100 06/07/17 01:00 86 06/07/17 00:37 97.7 100 149/86 (107) 94 06/07/17 00:00 88 06/06/17 23:00 84 06/06/17 22:15 21 06/06/17 22:00 86 06/06/17 21:00 106 06/06/17 20:00 104 06/06/17 19:00 112 06/06/17 19:00 97.8 102 148/66 (93) 92 06/06/17 18:00 108 06/06/17 17:00 107 06/06/17 16:00 96 06/06/17 15:00 81 06/06/17 15:00 98.7 82 20 144/65 (91) 95 06/06/17 15:00 95 Room Air 06/06/17 14:00 90 06/06/17 13:00 103 06/06/17 12:00 88 06/06/17 11:00 94 Room Air 06/06/17 11:00 97.9 98 18 111/59 (76) 94 06/06/17 11:00 96 06/06/17 10:42 96 Nasal Cannula 2.00 I/O 06/06/17 06/06/17 06/06/17 06/07/17 06/07/17 06/07/17 07:00 15:00 23:00 07:00 15:00 23:00 Intake Total 360 ml 100 ml 1200 ml 680 ml 100 ml Output Total 550 ml 900 ml 2950 ml Balance -190 ml 100 ml 300 ml -2270 ml 100 ml Intake Oral 360 ml 1200 ml 480 ml IV Total 100 ml 200 ml 100 ml Output Urine Total 550 ml 900 ml 2950 ml # Bowel Movements 2 Result Diagram: 06/07/17 0341 06/07/17 0341 Imaging Last Impressions Chest X-Ray 06/04/17 0600 Signed Impressions: Service Date/Time: Sunday, June 04, 2017 04:20 - CONCLUSION: New left lower lobe infiltrate. Dani Kim Jr., MD Objective Remarks GENERAL: NAD SKIN: Warm and dry. HEAD: Normocephalic. EYES: No scleral icterus. No injection or drainage. NECK: Supple, trachea midline. No JVD or lymphadenopathy. CARDIOVASCULAR: Regular rate and rhythm without murmurs, gallops, or rubs. RESPIRATORY: Breath sounds equal bilaterally. No accessory muscle use. GASTROINTESTINAL: Abdomen soft, non-tender, nondistended. MUSCULOSKELETAL: No cyanosis, or edema. dressing of RLE BACK: Nontender without obvious deformity. No CVA tenderness. A/P Problem List: (1) infrarenal aortic occlusion (2) PAD (peripheral artery disease) ICD Code: I73.9 - Peripheral vascular disease, unspecified Assessment and Plan 72-year-old female with s/p right ax-fem, fem-fem bypass infrarenal aortic occlusion severe PAD Continue PRN pain treatments Vascular surgeon following Removed Bilat Groin Prevena wound vacs Leave B groin incisions open to air Continue wound care per Podiatry Dr Reddy RLE Cellulitis UTI-Urine culture negative LLL Infiltrate Podiatry following Continue on Doxy, Unasyn 1.5 g IV every 6 hours; will d/c on Levaquin Follow cultures Autoimmune workup Tickborne illness screening Continue to follow wound cultures Discontinue Solu-Medrol and start prednisone p.o. Ulcers right leg/foot s/p debridement of ulcers right leg/foot and biopsy of lesions x [address] Reddy Ordered twice weekly bandage changes per nursing while in-house. Awaiting culture and biopsy results. Will d/c on Levaquin COPD No exacerbation DuoNeb as needed General Anxiety Disorder PRN Wai Soliman MD Jun 07, 2017 10:28
[2017-06-07] MEDS ORDERED: HYDR-3288 PO (12:00)
[2017-06-07] MEDS ORDERED: ALPR.5 PO (12:00)
[2017-06-07] MEDS ORDERED: ECASA81 PO (12:00)
[2017-06-07] MEDS ORDERED: ATOR40TA16 PO (12:00)
[2017-06-07] MEDS ORDERED: LEVA500T33 PO (12:00)
[2017-06-07] MEDS ORDERED: PRED20 PO (12:00)
--- NOTE | 2017-06-07 12:03 | HHI.DS ---
Discharge Summary Admission Date Jun 01, 2017 at 06:14 Discharge Date: Jun 07, 2017 Admitting Diagnosis (1) infrarenal aortic occlusion (2) PAD (peripheral artery disease) ICD Code: I73.9 - Peripheral vascular disease, unspecified Procedures s/p right ax-fem, fem-fem bypass s/p debridement of ulcers right leg/foot and biopsy of lesions x 2 right leg Brief History - From Admission Patient is a 72-year-old female with past medical history of severe PAD, COPD, chronic right lower extremity wounds, recent UTI completed Bactrim, hypertension who was admitted to Dr. Barreto service for severe occlusive disease , infrarenal aortic occlusion with chronic right lower extremity wounds. Patient underwent axillofemoral and femorofemoral bypass today by Dr. Barreto. Postop patient was admitted to the CVICU where I evaluated her. Review of OR records indicate EBL: 200mL. Received 3800mL crystalloids, urine output was 370 mL. On my evaluation patient was drowsy from residual anesthesia. Patient remained hypotensive despite 1 L fluid bolus. Started on Levophed to maintain map above 65. Stat CBC 29.4, and patient has evidence of cellulitis surrounding the right lower extremity wound. Recently had been treated with Bactrim for UTI per patient. I will start patient on Unasyn 1.5 g IV every 6 hours. Send urine culture and blood culture. Protein corrected calcium is low which will be replaced. Lactic acid is normal, albumin level is 1.6 indicating severe protein energy malnutrition CBC/BMP: 06/07/17 0341 06/07/17 0341 Significant Findings Laboratory Tests Test 06/06/17 04:10 06/07/17 03:41 White Blood Count 18.7 TH/MM3 (4.0-11.0) 18.1 TH/MM3 (4.0-11.0) Red Blood Count 3.29 MIL/MM3 (4.00-5.30) 3.18 MIL/MM3 (4.00-5.30) Hemoglobin 9.9 GM/DL (11.6-15.3) 9.2 GM/DL (11.6-15.3) Hematocrit 29.4 % (35.0-46.0) 27.2 % (35.0-46.0) Platelet Count 462 TH/MM3 (150-450) 521 TH/MM3 (150-450) Neutrophils (%) (Auto) 81.9 % (16.0-70.0) 94.2 % (16.0-70.0) Lymphocytes (%) (Auto) 7.3 % (9.0-44.0) 3.4 % (9.0-44.0) Monocytes (%) (Auto) 9.0 % (0.0-8.0) Neutrophils # (Auto) 15.3 TH/MM3 (1.8-7.7) 17.0 TH/MM3 (1.8-7.7) Monocytes # (Auto) 1.7 TH/MM3 (0-0.9) Albumin 1.6 GM/DL (3.4-5.0) 1.7 GM/DL (3.4-5.0) Calcium Level 7.8 MG/DL (8.5-10.1) 8.3 MG/DL (8.5-10.1) Sodium Level 133 MEQ/L (136-145) 135 MEQ/L (136-145) Chloride Level 96 MEQ/L (98-107) Lymphocytes # (Auto) 0.6 TH/MM3 (1.0-4.8) Erythrocyte Sedimentation Rate GREATER THAN 140 mm/hr Creatinine 0.40 MG/DL (0.50-1.00) Random Glucose 180 MG/DL (74-106) C-Reactive Protein 11.10 MG/DL (0.00-0.30) Imaging Last Impressions Chest X-Ray 06/04/17 0600 Signed Impressions: Service Date/Time: Sunday, June 04, 2017 04:20 - CONCLUSION: New left lower lobe infiltrate. Dani Kim Jr., MD PE at Discharge GENERAL: NAD SKIN: Warm and dry. HEAD: Normocephalic. EYES: No scleral icterus. No injection or drainage. NECK: Supple, trachea midline. No JVD or lymphadenopathy. CARDIOVASCULAR: Regular rate and rhythm without murmurs, gallops, or rubs. RESPIRATORY: Breath sounds equal bilaterally. No accessory muscle use. GASTROINTESTINAL: Abdomen soft, non-tender, nondistended. MUSCULOSKELETAL: No cyanosis, or edema. dressing of RLE BACK: Nontender without obvious deformity. No CVA tenderness. Hospital Course While in hospital, patient was treated for: s/p right ax-fem, fem-fem bypass infrarenal aortic occlusion severe PAD Continue PRN pain treatments Vascular surgeon following Removed Bilat Groin Prevena wound vacs Leave B groin incisions open to air RLE Cellulitis UTI-Urine culture negative LLL Infiltrate Podiatry was consulted Treated with doxy, Unasyn 1.5 g IV every 6 hours; however will discharge on Levaquin Autoimmune workup Tickborne illness screening Discontinue Solu-Medrol and start prednisone p.o. on discharge Ulcers right leg/foot s/p debridement of ulcers right leg/foot and biopsy of lesions x [address] Reddy Ordered twice weekly bandage changes per nursing while in-house. Awaiting culture and biopsy results. Will d/c on Levaquin COPD No exacerbation DuoNeb as needed General Anxiety Disorder PRN Xanax Pt Condition on Discharge: Good Discharge Disposition: Discharge to SNF Discharge Time: > 30 minutes Discharge Instructions DIET: Follow Instructions for: Heart Healthy Diet Activities you can perform: Regular-No Restrictions Follow up Referrals: PCP Follow-up - 2-3 Days Podiatry - 2 Weeks Vascular Surgery - 3 Weeks @ Vascular Surgery with Angelo Barreto MD New Medications: Hydrocodone-Acetaminophen ([place]) 7.5-325 mg Tab 1 TAB PO Q6H PRN for PAIN, #20 TAB 0 Refills Levofloxacin (Levaquin) 500 Mg Tablet 500 MG PO DAILY for Infection, #10 TAB 0 Refills Alprazolam (Xanax) 0.5 Mg Tab 0.5 MG PO Q6H PRN for ANXIETY, #[address] (Aspirin DR) 81 Mg Tabdr 81 MG PO DAILY for Prevent Blood Clot, #30 TAB Atorvastatin (Atorvastatin) 40 Mg Tab 40 MG PO HS for Cholesterol Management, #30 TAB 3 Refills Prednisone (Prednisone) 20 Mg Tab 20 MG PO DAILY for Infection, #7 TAB Continued Medications: Bisoprolol (Bisoprolol) 10 Mg Tab 10 MG PO BID for Blood Pressure Management, #30 TAB 0 Refills Nifedipine ER 24 HR (Nifedipine ER 24 HR) 60 Mg Tab 60 MG PO DAILY, #30 TAB 0 Refills Saccharomyces Boulardii (Probiotic) 250 Mg Cap 250 MG PO BID for Nutritional Supplement, CAP 0 Refills Discontinued Medications: Alprazolam (Alprazolam) 0.5 Mg Tab 0.5 MG PO Q6H PRN for ANXIETY, TAB 0 Refills Wai Oro MD Jun 07, 2017 12:03
[2017-06-07] MEDS: ENOXAPARIN SODIUM 30 MG/0.3 ML SYRINGE SQ SCH (12:04)
[2017-06-08] MEDS ORDERED: predniSONE 20 MG TAB PO SCH (09:00)
== END 2017-06-07 18:14 | DRG 252 ==
LOC: HSDI 06:14 → HCVI 12:50 → HCPC 06-04 10:42
PROVIDERS: ADMIT Hospitalist; ATTEND Hospitalist
PROC: 04UK07Z Supplement Right Femoral Artery with Autologous Tissue Substitute, Open Approach (ICD-10-PCS; 2017-06-01)
PROC: 03150J9 Bypass Right Axillary Artery to Right Lower Leg Artery with Synthetic Substitute, Open Approach (ICD-10-PCS; 2017-06-01)
PROC: 04CL0ZZ Extirpation of Matter from Left Femoral Artery, Open Approach (ICD-10-PCS; 2017-06-01)
PROC: 04UL0KZ Supplement Left Femoral Artery with Nonautologous Tissue Substitute, Open Approach (ICD-10-PCS; 2017-06-01)
PROC: 04UK0KZ Supplement Right Femoral Artery with Nonautologous Tissue Substitute, Open Approach (ICD-10-PCS; 2017-06-01)
PROC: 04CK0ZZ Extirpation of Matter from Right Femoral Artery, Open Approach (ICD-10-PCS; principal; 2017-06-01 07:45)
PROC: 041K0JJ Bypass Right Femoral Artery to Left Femoral Artery with Synthetic Substitute, Open Approach (ICD-10-PCS; 2017-06-01 07:45)
PROC: 0JBQ0ZZ Excision of Right Foot Subcutaneous Tissue and Fascia, Open Approach (ICD-10-PCS; 2017-06-04)
PROC: 0JBN0ZZ Excision of Right Lower Leg Subcutaneous Tissue and Fascia, Open Approach (ICD-10-PCS; 2017-06-04)
PROC: 0HBKXZX Excision of Right Lower Leg Skin, External Approach, Diagnostic (ICD-10-PCS; 2017-06-04)
DX: I70.232 Atherosclerosis of native arteries of right leg with ulceration of calf (principal); E43 Unspecified severe protein-calorie malnutrition; A41.9 Sepsis, unspecified organism; R34 Anuria and oliguria; L03.115 Cellulitis of right lower limb; J98.11 Atelectasis; L97.219 Non-pressure chronic ulcer of right calf with unspecified severity; L97.519 Non-pressure chronic ulcer of other part of right foot with unspecified severity; I70.292 Other atherosclerosis of native arteries of extremities, left leg; I70.0 Atherosclerosis of aorta; J44.9 Chronic obstructive pulmonary disease, unspecified; I10 Essential (primary) hypertension; F41.1 Generalized anxiety disorder; F17.210 Nicotine dependence, cigarettes, uncomplicated; Z87.440 Personal history of urinary (tract) infections
CPT/HCPCS: 71045; 76937; 80048; 80053; 81001; 82550; 82552; 82805; 83605; 83735; 84100; 84484; 85025; 85027; 85610; 85652; 86038; 86140; 86430; 86617; 86850; 86900; 86901; 87015; 87040; 87070; 87077; 87086; 87102; 87116; 87186; 87205; 87206; 88305; 94150; 94640; 94664; 94667; 94668; C1768; J0131; J0295; J0690; J1100; J1644; J1650; J2250; J2270; J2370; J2405; J2720; J2920; J3010; J3475; J7030; J7040; J7050; J7120